=== PATIENT | male | born 1980 | race Two or more races ===

== ENCOUNTER 2021-05-14 15:44 | Inpatient (IN) ==
[2021-05-14 16:34] LABS: Alanine Aminotransferase 46 U/L (7-52); Albumin Globulin Ratio 0.7 (0.9-2); Albumin Level 3.4 gm/dl (3.4-5.0); Alkaline Phosphatase 148 U/L (34-104); Anion Gap 3 (3-11); Aspartate Aminotransferase 64 U/L (13-39); Bilirubin,Total 1.5 mg/dl (0.2-1.0); Blood Urea Nitrogen 20 mg/dl (6-23); Calcium 8.8 mg/dl (8.5-10.1); Carbon Dioxide 25 mmol/L (21-32); Chloride 105 mmol/L (98-107); Est GFR (African American) 102.4 ml/min; Est GFR (Non-African American) 88.4 ml/min; Globulin 4.6 gm/dl (2.5-4.0); Glucose 104 mg/dl (70-99(Fasting)); Lipase 74 U/L (11-82); Potassium 4.6 mmol/L (3.5-5.1); Sodium 133 mmol/L (136-145)
[2021-05-14 16:52] LABS: Basophils # (auto) 0.02 K/uL (0-0.2); Basophils % (auto) 0.3 %; Eosinophils # (auto) 0.07 K/uL (0-0.5); Eosinophils % (auto) 1.1 %; Hematocrit (blood only) 45.7 % (42-52); Hemoglobin 16.3 g/dL (14.0-18.0); Immature Granulocytes # (auto) 0.02 K/uL (0.00-0.02); Immature Granulocytes % (auto) 0.3 %; Lymphocytes # (auto) 1.49 K/uL (1.2-3.4); Mean Corpuscular Hgb Conc 35.7 g/dL (32-36); Mean Corpuscular Volume 95.4 fL (80-100); Mean Platelet Volume 12.2 fL (7.4-10.4); Monocytes # (auto) 0.97 K/uL (0.11-0.59); Monocytes % (auto) 15.6 %; Neutrophils # (auto) 3.65 K/uL (1.4-6.5); Neutrophils % (auto) 58.7 %; Platelet Count 84 K/uL (130-400); Platelet Estimate Decreased (Normal); RDW Coefficient of Variation 13.6 % (11.5-14.5); RDW Standard Deviation 47.2 fL (36.4-46.3); Red Blood Count 4.79 M/uL (4.7-6.1); White Blood Count 6.22 K/uL (4.8-10.8)
[2021-05-14] MEDS ORDERED: MoRPHine SULFATE 4 MG/ML 1 ML CARP\\VIAL IV PRN (17:37)
[2021-05-14] MEDS ORDERED: MoRPHine SULFATE 4 MG/ML 1 ML CARP\\VIAL IV STA (17:37)
[2021-05-14] MEDS ORDERED: SODIUM CHLORIDE 0.9% 1000ML 1,000 ML IV ONE (17:37)
[2021-05-14] MEDS: ONDANSETRON INJ 2 MG/ML 2 ML VIAL IV STA (17:49)
[2021-05-14 17:51] LABS: INR 1.2 (0.9-1.1); Partial Thromboplastin Ratio 1.1; Partial Thromboplastin Time 29.5 Seconds (21.0-31.0); Prothrombin Time 11.7 Seconds (9.0-12.0)
--- NOTE | 2021-05-14 18:02 | Emergency Department Note ---
Impression & Plan Abdominal pain, Hepatitis C, Back pain, Thrombocytopenia ED Provider Note NAME: MARCY [id number] LISA AGE: 41 SEX: M : 1980 ARRIVES VIA: Walk-In INFORMANT: Patient, ED PROVIDER(S): Caesar Samano DO CHIEF COMPLAINT: Abdominal pain HPI: The patient is a 41-year-old male who presented to emergency department for an evaluation of abdominal pain. The patient describes right-sided abdominal pain. It does go to his flank sometimes. He denies having any chest pain or difficulty breathing. He was not noted to have any fever. The patient was seen at the [facility] at the [facility] and sent to the emergency department for further evaluation. He states he has never had similar symptoms in the past. He states his pain is moderate to severe. He does have pain that worsens with ambulation as well as palpation over the right side of the abdomen. He has had some nausea but no vomiting. ROS: See above HPI for pertinent positives & negatives. A total of 10 systems reviewed and were otherwise negative. PAST MEDICAL HISTORY: See Below PAST SURGICAL HISTORY: See Below FAMILY HISTORY: See Below SOCIAL HISTORY: See Below HOME MEDICATIONS: See Below ALLERGIES: See Below VITALS: See Below PHYSICAL EXAMINATION: GENERAL: The patient is awake and alert. He appears uncomfortable and anxious. EYES: The conjunctivae are clear. The pupils are round and reactive. EARS, NOSE, MOUTH AND THROAT: The nose is without any evidence of any deformity. NECK: The neck is nontender and supple. RESPIRATORY: Normal respiratory effort is noted there is no evidence of wheezing rhonchi or rales CARDIOVASCULAR: Regular rate and rhythm noted there no murmurs rubs or gallops normal S1 normal S2. GASTROINTESTINAL: The abdomen is soft and mildly distended. There is significant right upper and right lower quadrant tenderness to palpation. Mild guarding is noted. BACK: No midline tenderness or or step-off noted range of motion in flexion extension as well as rotation no signs of muscle spasm noted MUSCULOSKELETAL/EXTREMITIES: There is no evidence of gross deformity full range of motion is noted in the hips and shoulders. SKIN: There is no obvious evidence of any rash. There are no petechiae, pallor or cyanosis noted. NEUROLOGIC: Patient is awake alert and oriented x3. MEDICAL DECISION MAKING: The patient is a 41-year-old male who has a history of HIV as well as hepatitis C who presented to the emergency department for an evaluation of abdominal pain. History was obtained with the use of the [facility]. The patient is Egyptian- speaking. I discussed the patient's laboratory and radiographic studies with him. He does have a history of hepatitis and he states that he has had several episodes in the past when his "liver was inflamed". The patient was treated with IV fluids and IV pain medication. CAT scan was obtained. It appears to sh ow signs of abnormality in the lower back. This could be consistent with osteomyelitis or discitis. Because of these findings I discussed his case with the on-call [facility] hospitalist. They have agreed to evaluate the patient in the emergency department for further management and disposition. The patient may require further imaging. Triage Nursing notes reviewed. Prior medical records reviewed Vital Signs: reviewed and remarkable for no significant abnormalities Differential diagnosis: Etiologies such as appendicitis, diverticulitis, obstruction, inflammatory bowel disease, renal colic, PUD, biliary pathology, pancreatitis, mesenteric ischemia, aortic pathology, infections, genitourinary, UTI, perforated viscus, as well as others were entertained. ER treatment provided: See below Diagnostics interpreted by me: ECG: none Cardiac Monitoring: An order was placed for continuous cardiac monitoring. The monitor shows a rate of 70 bpm with sinus rhythm. Laboratory studies: As stated above and show below. Imaging studies: See below Consultation(s): I discussed this case with Br[facility]. Past Med/Surg History Medical History (Updated 05/14/21 @ 22:25 by Caesar Samano DO) Hepatitis C HIV (human immunodeficiency virus infection) Social History Smoking Status: Former smoker Preferred Language: Egyptian Feels Safe at Home: Yes Allergies Allergies Allergy/AdvReac Type Severity Reaction Status Date / Time No Known Allergies Allergy Unverified 05/14/21 19:10 Home Meds Home Medications Medication Instructions Recorded Confirmed bictegravir 30 mg-emtricitabine 1 tab PO DAILY 05/14/21 05/14/21 120 mg-tenofovir alafenam 15 mg tablet (Biktarvy) duloxetine 30 mg capsule,delayed 30 mg PO BID 05/14/21 05/14/21 release (Cymbalta) levalbuterol tartrate 45 2 inh INHALATION Q6H PRN 05/14/21 05/14/21 mcg/actuation aerosol inhaler (Xopenex HFA) pantoprazole 40 mg tablet,delayed 40 mg PO HS 05/14/21 05/14/21 release (Protonix) propranolol 40 mg tablet 40 mg PO BID 05/14/21 05/14/21 trazodone 100 mg tablet 100 mg PO HS 05/14/21 05/14/21 Results & Data (ED) Vital Signs Vital Signs - 24 hr 05/14/21 15:46 05/14/21 17:48 05/14/21 17:59 Temperature 36.3 C L Temperature Source Temporal Artery Scan Pulse Rate 80 73 Pulse Rate [Apical] 74 Pulse Rate from SpO2 Sensor 73 Pulse Rhythm Regular Pulse Strength Normal Respiratory Rate 20 20 24 Respiratory Effort / Characteristics Non-Labored Spontaneous Non-Labored Spontaneous Respiratory Depth Normal Normal Respiratory Pattern Regular Regular Blood Pressure 146/93 H Blood Pressure [Right Arm] 124/87 Blood Pressure Mean 110 Blood Pressure Mean [Right Arm] 99 Blood Pressure Position Sitting Blood Pressure Position [Right Arm] Pulse Oximetry 95 95 93 Oxygen Delivery Method Room Air Room Air Sepsis Recent Fever Within 48 Hours No Sepsis New/Unexplained Change in Mental Status No Sepsis Action Taken by Nursing No Action Required 05/14/21 18:00 05/14/21 19:00 Temperature Temperature Source Pulse Rate 72 Pulse Rate [Apical] 70 Pulse Rate from SpO2 Sensor 72 Pulse Rhythm Pulse Strength Respiratory Rate 21 18 Respiratory Effort / Characteristics Respiratory Depth Respiratory Pattern Blood Pressure 137/87 Blood Pressure [Right Arm] 149/71 H Blood Pressure Mean 103 Blood Pressure Mean [Right Arm] 97 Blood Pressure Position Blood Pressure Position [Right Arm] Lying Pulse Oximetry 93 95 Oxygen Delivery Method Room Air Sepsis Recent Fever Within 48 Hours Sepsis New/Unexplained Change in Mental Status Sepsis Action Taken by Prison Medications Current Medication List: was personally reviewed by me Laboratory Data Attestation: I reviewed the patient's lab results. Result diagrams: 05/14/21 16:06 05/14/21 16:06 Lab Results 05/14/21 05/14/21 05/14/21 Range/Units 16:06 16:06 16:06 WBC 6.22 (4.8-10.8) K/uL RBC 4.79 (4.7-6.1) M/uL Hgb 16.3 (14.0-18.0) g/dL Hct 45.7 (42-52) % MCV 95.4 (80-100) fL MCH 34.0 (25-34) pg MCHC 35.7 (32-36) g/dL RDW Std Deviation 47.2 H (36.4-46.3) fL RDW Coeff of Evan 13.6 (11.5-14.5) % Plt Count 84 L (130-400) K/uL MPV 12.2 H (7.4-10.4) fL Immature Gran % (Auto) 0.3 % Neut % (Auto) 58.7 % Lymph % (Auto) 24.0 % Christian % (Auto) 15.6 % Eos % (Auto) 1.1 % Baso % (Auto) 0.3 % Neut # (Auto) 3.65 (1.4-6.5) K/uL Lymph # (Auto) 1.49 (1.2-3.4) K/uL Christian # (Auto) 0.97 H (0.11-0.59) K/uL Eos # (Auto) 0.07 (0-0.5) K/uL Baso # (Auto) 0.02 (0-0.2) K/uL Immature Gran # (Auto) 0.02 (0.00-0.02) K/uL Platelet Estimate Decreased L (Normal) ESR (0-15) mm/hr PT 11.7 (9.0-12.0) Seconds INR 1.2 H (0.9-1.1) APTT 29.5 (21.0-31.0) Seconds PTT Ratio 1.1 Sodium 133 L (136-145) mmol/L Potassium 4.6 (3.5-5.1) mmol/L Chloride 105 (98-107) mmol/L Carbon Dioxide 25 (21-32) mmol/L Anion Gap 3 (3-11) BUN 20 (6-23) mg/dl Creatinine 1.05 (0.6-1.4) mg/dl Est Cr Clr Drug Dosing Not Reportable Est GFR ( Amer) 102.4 ml/min Est GFR (Non-Af Amer) 88.4 ml/min BUN/Creatinine Ratio 19.0 (10-20) Glucose 104 H (70-99(Fasting)) mg/dl Calcium 8.8 (8.5-10.1) mg/dl Total Bilirubin 1.5 H (0.2-1.0) mg/dl AST 64 H (13-39) U/L ALT 46 (7-52) U/L Alkaline Phosphatase 148 H (34-104) U/L C-Reactive Protein (0-0.5) mg/dl Total Protein 8.0 (6.0-8.3) gm/dl Albumin 3.4 (3.4-5.0) gm/dl Globulin 4.6 H (2.5-4.0) gm/dl Albumin/Globulin Ratio 0.7 L (0.9-2) Lipase 74 (11-82) U/L Procalcitonin (0-0.5) ng/ml Hep Bs Antigen (Neg) Hepatitis C Antibody (Neg) SARS-CoV-2, RNA, NAAT (NEGATIVE) 05/14/21 05/14/21 05/14/21 Range/Units 16:06 16:06 16:06 WBC (4.8-10.8) K/uL RBC (4.7-6.1) M/uL Hgb (14.0-18.0) g/dL Hct (42-52) % MCV (80-100) fL MCH (25-34) pg MCHC (32-36) g/dL RDW Std Deviation (36.4-46.3) fL RDW Coeff of Evan (11.5-14.5) % Plt Count (130-400) K/uL MPV (7.4-10.4) fL Immature Gran % (Auto) % Neut % (Auto) % Lymph % (Auto) % Christian % (Auto) % Eos % (Auto) % Baso % (Auto) % Neut # (Auto) (1.4-6.5) K/uL Lymph # (Auto) (1.2-3.4) K/uL Christian # (Auto) (0.11-0.59) K/uL Eos # (Auto) (0-0.5) K/uL Baso # (Auto) (0-0.2) K/uL Immature Gran # (Auto) (0.00-0.02) K/uL Platelet Estimate (Normal) ESR 58 H (0-15) mm/hr PT (9.0-12.0) Seconds INR (0.9-1.1) APTT (21.0-31.0) Seconds PTT Ratio Sodium (136-145) mmol/L Potassium (3.5-5.1) mmol/L Chloride (98-107) mmol/L Carbon Dioxide (21-32) mmol/L Anion Gap (3-11) BUN (6-23) mg/dl Creatinine (0.6-1.4) mg/dl Est Cr Clr Drug Dosing Est GFR ( Amer) ml/min Est GFR (Non-Af Amer) ml/min BUN/Creatinine Ratio (10-20) Glucose (70-99(Fasting)) mg/dl Calcium (8.5-10.1) mg/dl Total Bilirubin (0.2-1.0) mg/dl AST (13-39) U/L ALT (7-52) U/L Alkaline Phosphatase (34-104) U/L C-Reactive Protein 6.92 H (0-0.5) mg/dl Total Protein (6.0-8.3) gm/dl Albumin (3.4-5.0) gm/dl Globulin (2.5-4.0) gm/dl Albumin/Globulin Ratio (0.9-2) Lipase (11-82) U/L Procalcitonin (0-0.5) ng/ml Hep Bs Antigen Neg (Neg) Hepatitis C Antibody Prelim Pos A (Neg) SARS-CoV-2, RNA, NAAT (NEGATIVE) 05/14/21 05/14/21 Range/Units 16:06 17:44 WBC (4.8-10.8) K/uL RBC (4.7-6.1) M/uL Hgb (14.0-18.0) g/dL Hct (42-52) % MCV (80-100) fL MCH (25-34) pg MCHC (32-36) g/dL RDW Std Deviation (36.4-46.3) fL RDW Coeff of Evan (11.5-14.5) % Plt Count (130-400) K/uL MPV (7.4-10.4) fL Immature Gran % (Auto) % Neut % (Auto) % Lymph % (Auto) % Christian % (Auto) % Eos % (Auto) % Baso % (Auto) % Neut # (Auto) (1.4-6.5) K/uL Lymph # (Auto) (1.2-3.4) K/uL Christian # (Auto) (0.11-0.59) K/uL Eos # (Auto) (0-0.5) K/uL Baso # (Auto) (0-0.2) K/uL Immature Gran # (Auto) (0.00-0.02) K/uL Platelet Estimate (Normal) ESR (0-15) mm/hr PT (9.0-12.0) Seconds INR (0.9-1.1) APTT (21.0-31.0) Seconds PTT Ratio Sodium (136-145) mmol/L Potassium (3.5-5.1) mmol/L Chloride (98-107) mmol/L Carbon Dioxide (21-32) mmol/L Anion Gap (3-11) BUN (6-23) mg/dl Creatinine (0.6-1.4) mg/dl Est Cr Clr Drug Dosing Est GFR ( Amer) ml/min Est GFR (Non-Af Amer) ml/min BUN/Creatinine Ratio (10-20) Glucose (70-99(Fasting)) mg/dl Calcium (8.5-10.1) mg/dl Total Bilirubin (0.2-1.0) mg/dl AST (13-39) U/L ALT (7-52) U/L Alkaline Phosphatase (34-104) U/L C-Reactive Protein (0-0.5) mg/dl Total Protein (6.0-8.3) gm/dl Albumin (3.4-5.0) gm/dl Globulin (2.5-4.0) gm/dl Albumin/Globulin Ratio (0.9-2) Lipase (11-82) U/L Procalcitonin 0.08 (0-0.5) ng/ml Hep Bs Antigen (Neg) Hepatitis C Antibody (Neg) SARS-CoV-2, RNA, NAAT NEGATIVE (NEGATIVE) Administered Medications Discontinued Medications Sodium Chloride (Nss 1000ml) 1,000 mls @ 999 mls/hr IV .Q1H1M ONE Stop: 05/14/21 18:37 Last Admin: 05/14/21 17:49 Dose: 999 mls/hr Documented by: [id number] Ioversol (Optiray 320 100ml) 92 ml IV ONCE ONE Stop: 05/14/21 18:34 Last Admin: 05/14/21 18:34 Dose: 92 ml Documented by: [id number] Morphine Sulfate (Morphine Sulfate 4 Mg/Ml 1 Ml Carp\\Vial) 4 mg IV NOW STA Stop: 05/14/21 17:38 Last Admin: 05/14/21 17:49 Dose: 4 mg Documented by: [id number] Ondansetron HCl (Ondansetron Inj 2 Mg/Ml 2 Ml Vial) 4 mg IV NOW STA Stop: 05/14/21 17:38 Last Admin: 05/14/21 17:49 Dose: 4 mg Documented by: [id number] Admin: 05/14/21 17:49 Dose: 4 mg Documented by: [id number] Imaging Data Radiologist's Impression: Chest X-Ray 05/14/21 17:31 XR chest 1V portable HISTORY: Shortness of breath, liver dx COMPARISON: None. FINDINGS: There are low lung volumes. No pneumothorax. No pleural effusions. The heart is mildly enlarged. There is diffuse interstitial/vascular thickening consistent with mild congestive change. IMPRESSION: Cardiomegaly with mild congestive change. ACT 112: Negative or not required by law. Electronically signed by: Alek Nguyen M.D. 05/14/2021 6:35 PM Abdomen/Pelvis CT 05/14/21 17:[address] WITH IV CONTRAST CT DOSE: 788.62 mGy.cm HISTORY: Right-sided abdominal pain. TECHNIQUE: Multiaxial CT images of the abdomen and pelvis were performed follow ing the use of intravenous contrast. A dose lowering technique was utilized adhering to the principles of ALARA. COMPARISON STUDY: None. FINDINGS: Respiratory motion at the lung bases resulting in suboptimal evaluation. Small focal density within the lingula which measures 8 mm. This may represent atelectasis. Otherwise, the lung bases are clear. The heart is borderline enlarged. No pneumoperitoneum. No pneumatosis. Destructive change at the L4-5 endplates with paravertebral infiltration consistent with a discitis/osteomyelitis. The endplates demonstrate sclerotic edges, therefore, this may represent an acute on chronic discitis/osteomyelitis. There is also moderate to severe central canal narrowing at this level likely due to the disc osteophyte complex. Nodular contour throughout the liver consistent with cirrhosis. Wedge-shaped hypodensity within the left hepatic lobe. Associated capsular retraction favors fibrosis/scarring. No definite hepatic masses. The spleen is enlarged measuring 14 cm in length. There is distal paraesophageal and upper abdominal varicosities consistent with portal hypertension. The main portal vein appears patent. Umbilical varicosities are also noted. No retroperitoneal lymphadenopathy. Normal caliber abdominal aorta. There is a punctate stone within the left kidney. The kidneys enhance normally. No ureteral stones. No hydronephrosis. Normal bladder. The gallbladder is unremarkable. Normal pancreas and adrenal glands. Mild perihepatic inflammatory change is noted. No ascites. A few colonic diverticula. No evidence for acute diverticulitis. No bowel wall thickening or obstruction. Normal appendix. IMPRESSION: 1. Cirrhotic liver with mild perihepatic inflammatory change. This may represent acute hepatitis. 2. Distal paraesophageal, upper abdominal, and umbilical varices with associated splenomegaly. This consistent with underlying portal hypertension. 3. No bowel wall thickening or obstruction. 4. Normal appendix. 5. Left-sided nephrolithiasis. No hydronephrosis. 6. Destructive change at the L4-5 endplates with paravertebral infiltration consistent with a discitis/osteomyelitis. The endplates demonstrate sclerotic edges, therefore, this may represent an acute on chronic discitis/osteomyelitis. 7. Additional findings as described above. ACT 112: Negative or not required by law. Electronically signed by: Alek Nguyen M.D. 05/14/2021 6:54 PM Discharge Plan Visit Data Chief Complaint: Abdominal Pain Stated Complaint: ABD PAIN ED Provider: Caesar Samano Discharge Problem: Abdominal pain, Hepatitis C, Back pain, Thrombocytopenia Patient Disposition: Being Evaluated by Hospitalist Forms Stand Alone Forms: [facility] Prescriptions Prescriptions: No Action propranolol 40 mg Tablet 40 mg PO BID RF: 0 trazodone 100 mg Tablet 100 mg PO HS RF: 0 pantoprazole [Protonix] 40 mg Tablet,Delayed Release (Dr/Ec) 40 mg PO HS RF: 0 duloxetine [Cymbalta] 30 mg Capsule,Delayed Release(Dr/Ec) 30 mg PO BID RF: 0 levalbuterol tartrate [Xopenex HFA] 45 mcg/actuation Hfa Aerosol Inhaler 2 inh INHALATION Q6H PRN (Reason: Shortness Of Breath Or Wheezing) RF: 0 Biktarvy 30-120-15 mg Tablet 1 tab PO DAILY RF: 0 Referrals Referrals: Dago FRAZIER [Primary Care Provider] -
[2021-05-14] MEDS ORDERED: OPTIRAY 320 100ml IV ONE (18:33)
--- NOTE | 2021-05-14 18:37 | XRay Report ---
XR chest 1V portable HISTORY: Shortness of breath, liver dx COMPARISON: None. FINDINGS: There are low lung volumes. No pneumothorax. No pleural effusions. The heart is mildly enla rged. There is diffuse interstitial/vascular thickening consistent with mild congestive change. IMPRESSION: Cardiomegaly with mild congestive change. ACT 112: Negative or not required by law. Electronically signed by: Alek Nguyen M.D. 05/14/2021 6:35 PM
--- NOTE | 2021-05-14 18:56 | CT Scan Report ---
ABDOMEN AND PELVIS CT WITH IV CONTRAST CT DOSE: 788.62 mGy.cm HISTORY: Right-sided abdominal pain. TECHNIQUE: Multiaxial CT images of the abdomen and pelvis were performed following the use of intrave nous contrast. A dose lowering technique was utilized adhering to the principles of ALARA. COMPARISON STUDY: None. FINDINGS: Respiratory motion at the lung bases resulting in suboptimal evaluation. Small focal densit y within the lingula which measures 8 mm. This may represent atelectasis. Otherwise, the lung bases a re clear. The heart is borderline enlarged. No pneumoperitoneum. No pneumatosis. Destructive change a t the L4-5 endplates with paravertebral infiltration consistent with a discitis/osteomyelitis. The en dplates demonstrate sclerotic edges, therefore, this may represent an acute on chronic discitis/osteo myelitis. There is also moderate to severe central canal narrowing at this level likely due to the di sc osteophyte complex. Nodular contour throughout the liver consistent with cirrhosis. Wedge-shaped h ypodensity within the left hepatic lobe. Associated capsular retraction favors fibrosis/scarring. No definite hepatic masses. The spleen is enlarged measuring 14 cm in length. There is distal paraesopha geal and upper abdominal varicosities consistent with portal hypertension. The main portal vein appea rs patent. Umbilical varicosities are also noted. No retroperitoneal lymphadenopathy. Normal caliber abdominal aorta. There is a punctate stone within the left kidney. The kidneys enhance normally. No u reteral stones. No hydronephrosis. Normal bladder. The gallbladder is unremarkable. Normal pancreas a nd adrenal glands. Mild perihepatic inflammatory change is noted. No ascites. A few colonic diverticu la. No evidence for acute diverticulitis. No bowel wall thickening or obstruction. Normal appendix. IMPRESSION: 1. Cirrhotic liver with mild perihepatic inflammatory change. This may represent acute hepatitis. 2. Distal paraesophageal, upper abdominal, and umbilical varices with associated splenomegaly. This c onsistent with underlying portal hypertension. 3. No bowel wall thickening or obstruction. 4. Normal appendix. 5. Left-sided nephrolithiasis. No hydronephrosis. 6. Destructive change at the L4-5 endplates with paravertebral infiltration consistent with a disciti s/osteomyelitis. The endplates demonstrate sclerotic edges, therefore, this may represent an acute on chronic discitis/osteomyelitis. 7. Additional findings as described above. ACT 112: Negative or not required by law. Electronically signed by: Alek Nguyen M.D. 05/14/2021 6:54 PM
[2021-05-14 20:11] LABS: Hepatitis B Surf Ag Rflx Conf Neg (Neg)
--- NOTE | 2021-05-14 21:13 | History & Physical Report ---
Date of Service May 14, 2021 Assessment & Plan (1) Abdominal pain: (2) Cirrhosis: (3) Esophageal varices: (4) Thrombocytopenia: (5) Hepatitis C: Plan: Patient is 41 y/o M with PMH HIV, Hepatitis C, h/o syphilis, cirrhosis, ascites, esophageal varices, h/o IV drug abuse, alcohol abuse, h/o endocarditis, h/o osteomyelitis lumbar spine in 2020 presents to ER from [facility] with c/o right sided abdominal pain x 3 days with radiation to back. C/O one loose stool daily. Outpatient record sent with pt from [facility]: 02/21/2021: Plt: 61K, T bili: 0.7, AST: 65, ALT: 38. Alk Phos: 118 Today afebrile, no leukocytosis, Plt: 84, INR: 1.2, T Bili: 1.5, AST: 64, ALT: 46, Alk Phos: 148 CT Abd/pelvis: 1. Cirrhotic liver with mild perihepatic inflammatory change. This may represent acute hepatitis. 2. Distal paraesophageal, upper abdominal, and umbilical varices with associated splenomegaly. This consistent with underlying portal hypertension. 3. No bowel wall thickening or obstruction. 4. Normal appendix. 5. Left-sided nephrolithiasis. No hydronephrosis. In ER given 1L NSS, Zofran, morphine 4mg No acute signs of GI bleed, no significant ascites noted on CT abd/pelvis Acute hepatitis panel pending HCV RNA pending GI consult Continue PPI (6) HIV (human immunodeficiency virus infection): Plan: Outpatient record reports CD4:120 on 02/21/2111/2020: HIV VL<20, HCV VL: [id number] CD4, HIV RNA pending ID consult Continue Biktarvy (7) Osteomyelitis: Plan: Outpatient note reports h/o L4-L5 discitis, cultures +C. Albicans, also with MV endocarditis. Completed therapy with fluconazole and levofloxacin 10/02/20 Pt reports back pain x 1 month. Reports tactile fevers x 3 days. ABD/PELVIS CT: Destructive change at the L4-5 endplates with paravertebral infiltration consistent with a discitis/osteomyelitis. The endplates demonstrate sclerotic edges, therefore, this may represent an acute on chronic discitis/osteomyelitis. Obtain MRI L-spine to r/o discitis/osteomyelitis Obtain blood cultures, lactate Zosyn, daptomycin ESR, CRP elevated ID consult Repeat CRP, ESR, CBC in am Consider ortho spine consult. Currently unavailable (8) Endocarditis: Plan: History IV drug abuse. Last reported use in 2020. Outpatient note reports h/o L4-L5 discitis, cultures +C. Albicans, also with MV endocarditis. Completed therapy with fluconazole and levofloxacin 10/02/20 Since pt reports exertional SOB x several weeks and tactile fevers x 3 days, Will obtain echo to r/o endocarditis Obtain blood cultures Started on Zosyn, daptomycin ID consult (9) Asthma: Plan: No signs of exacerbation Continue Xopenex as needed (10) HTN (hypertension): Plan: Continue propranolol DVT Prophylaxis SCDs Currently incarcerated at [facility] Pt was seen and care coordinated with Dr Roberts. See addendum History of Present Illness Chief Complaint: Abdominal pain Primary Care Provider: [facility] Patient is 41 y/o M with PMH HTN, HIV, Hepatitis C, h/o syphilis, cirrhosis, ascites, esophageal varices, h/o IV drug abuse, alcohol abuse, h/o endocarditis, h/o osteomyelitis lumbar spine in 2020 presents to ER from [facility] with c/o right sided abdominal pain x 3 days. 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 Reports moderate pain, pain increased with inspiration, and radiates to right back. Reports history swelling of abdomen and states abdomen continues to be swollen. Feels chills and tactile fevers at night for past 3 days. Past 2 weeks loose stools having one episode daily. Denies nausea, vomiting. Reports back pain since last year. Reports history osteomyelitis and endocarditis in 2020 and was treated with antibiotics and back pain seemed to improve after treatment. He reports was using a back brace which he felt helped however since being incarcerated the past month has been unable to use back brace. Reports Back pain stated occurring again the past month and is to low back. C/O SOB with exertion for past several weeks. Denies cough or chest pain. Had rash to abdomen that was pruritic. reports was given a cream that improved rash. reports h/o EGD and thinks had GI bleeding of stomach in past. Denies h/o paracentesis. Patient thinks was treated for Hepatitis C. Reports thinks had Hepatitis A and B vaccination. Reports last used IV heroin 04/2020. Last ETOH 2020. Denies N/V, melena, hematochezia, dizziness, orthopnea, paresthesias, extremity weakness, extremity edema. Outpatient record sent with pt from [facility]: 02/21/2021: Plt: 61K, T bili: 0.7, AST: 65, ALT: 38. Alk Phos: 118, CD4:120 11/2020: HIV VL<20, HCV VL: [id number] 12/17/20 US: inhomogenous echotexture with lobulated contour concerning for cirrhosis, dilated CBD, splenomegaly, no ascites. Allergies Allergy/AdvReac Type Severity Reaction Status Date / Time No Known Allergies Allergy Unverified 05/14/21 19:10 Home Medications Medication Instructions Recorded Confirmed Type bictegravir 30 mg-emtricitabine 1 tab PO DAILY 05/14/21 05/14/21 History 120 mg-tenofovir alafenam 15 mg tablet (Biktarvy) duloxetine 30 mg capsule,delayed 30 mg PO BID 05/14/21 05/14/21 History release (Cymbalta) levalbuterol tartrate 45 2 inh INHALATION Q6H PRN 05/14/21 05/14/21 History mcg/actuation aerosol inhaler (Xopenex HFA) pantoprazole 40 mg tablet,delayed 40 mg PO HS 05/14/21 05/14/21 History release (Protonix) propranolol 40 mg tablet 40 mg PO BID 05/14/21 05/14/21 History trazodone 100 mg tablet 100 mg PO HS 05/14/21 05/14/21 History Past Med/Surg History Medical History (Updated 05/14/21 @ 22:53 by Latoya Pozo PA-C) Asthma Cirrhosis Endocarditis Esophageal varices Hepatitis C HIV (human immunodeficiency virus infection) HTN (hypertension) Osteomyelitis Thrombocytopenia Surgical History (Updated 05/14/21 @ 22:36 by Latoya Pozo PA-C) History of esophagogastroduodenoscopy (EGD) Family History (Updated 05/14/21 @ 22:48 by Latoya Pozo PA-C) Other Diabetes Social History (Updated 05/14/21 @ 22:49 by Latoya Pozo PA-C) Smoking Status: Unknown if ever smoked Tobacco Type: Cigarettes Do You Dip or Chew Tobacco: No; Hx Alcohol Use: No Hx Substance Use: Yes Preferred Language: Czech Communication Ability: Effective Communication Tools: IPad Epoxy Specialist Required: Yes Beliefs That Will Affect Care: None Current Living Situation: Other Current Living Situation Comment: [facility] Other Information That Helps Us Care for You: No Feels Safe at Home: Yes Safety Concerns: Feels Safe At This Time Review of Systems Review of Systems: All systems reviewed & are unremarkable except as noted in HPI & below Physical Exam Physical Exam: General: no distress, WDWN Head: normocephalic, atraumatic Eyes: conjunctiva non-injected, anicteric ENT: normal inspection external ears, nose, mucous membranes moist Neck: supple, trachea midline Lungs: clear, no respiratory distress, no wheezing/rhonchi/rales CV: RRR, no murmur, no pretibial edema Abd: +distended, normal BS, +tender to palpation RUQ, epigastric Ext: no cyanosis, no calf tenderness Neuro: A&O x 3, no focal deficits noted, normal affect Skin: warm, dry Results & Data Results [facility] Vital Signs (Past 12 Hours) Vital Signs Temp Pulse Pulse Resp BP BP Pulse Ox 05/14/21 19:00 70 18 149/71 H 95 05/14/21 18:00 72 21 137/87 93 05/14/21 17:59 73 24 93 05/14/21 17:48 74 20 124/87 95 05/14/21 15:46 36.3 C L 80 20 146/93 H 95 Laboratory Results Short CBC 05/14/21 Range/Units 16:06 WBC 6.22 (4.8-10.8) K/uL Hgb 16.3 (14.0-18.0) g/dL Hct 45.7 (42-52) % Plt Count 84 L (130-400) K/uL BMP 05/14/21 16:06 Sodium 133 L Potassium 4.6 Chloride 105 Carbon Dioxide 25 BUN 20 Creatinine 1.05 Glucose 104 H Calcium 8.8 Liver Function 05/14/21 Range/Units 16:06 Total Bilirubin 1.5 H (0.2-1.0) mg/dl AST 64 H (13-39) U/L ALT 46 (7-52) U/L Alkaline Phosphatase 148 H (34-104) U/L Albumin 3.4 (3.4-5.0) gm/dl Diagnostic Findings Chest X-Ray 05/14/21 17:31 XR chest 1V portable HISTORY: Shortness of breath, liver dx COMPARISON: None. FINDINGS: There are low lung volumes. No pneumothorax. No pleural effusions. The heart is mildly enlarged. There is diffuse interstitial/vascular thickening consistent with mild congestive change. IMPRESSION: Cardiomegaly with mild congestive change. ACT 112: Negative or not required by law. Electronically signed by: Alek Nguyen M.D. 05/14/2021 6:35 PM Abdomen/Pelvis CT 05/14/21 17:[address] WITH IV CONTRAST CT DOSE: 788.62 mGy.cm HISTORY: Right-sided abdominal pain. TECHNIQUE: Multiaxial CT images of the abdomen and pelvis were performed following the use of intravenous contrast. A dose lowering technique was utilized adhering to the principles of ALARA. COMPARISON STUDY: None. FINDINGS: Respiratory motion at the lung bases resulting in suboptimal evaluation. Small focal density within the lingula which measures 8 mm. This may represent atelectasis. Otherwise, the lung bases are clear. The heart is borderline enlarged. No pneumoperitoneum. No pneumatosis. Destructive change at the L4-5 endplates with paravertebral infiltration consistent with a discitis/osteomyelitis. The endplates demonstrate sclerotic edges, therefore, this may represent an acute on chronic discitis/osteomyelitis. There is also moderate to severe central canal narrowing at this level likely due to the disc osteophyte complex. Nodular contour throughout the liver consistent with cirrhosis. Wedge-shaped hypodensity within the left hepatic lobe. Associated capsular retraction favors fibrosis/scarring. No definite hepatic masses. The spleen is enlarged measuring 14 cm in length. There is distal paraesophageal and upper abdominal varicosities consistent with portal hypertension. The main portal vein appears patent. Umbilical varicosities are also noted. No retroperitoneal lymphadenopathy. Normal caliber abdominal aorta. There is a punctate stone within the left kidney. The kidneys enhance normally. No ureteral stones. No hydronephrosis. Normal bladder. The gallbladder is unremarkable. Normal pancreas and adrenal glands. Mild perihepatic inflammatory change is noted. No ascites. A few colonic diverticula. No evidence for acute diverticulitis. No bowel wall thickening or obstruction. Normal appendix. IMPRESSION: 1. Cirrhotic liver with mild perihepatic inflammatory change. This may represent acute hepatitis. 2. Distal paraesophageal, upper abdominal, and umbilical varices with associated splenomegaly. This consistent with underlying portal hypertension. 3. No bowel wall thickening or obstruction. 4. Normal appendix. 5. Left-sided nephrolithiasis. No hydronephrosis. 6. Destructive change at the L4-5 endplates with paravertebral infiltration consistent with a discitis/osteomyelitis. The endplates demonstrate sclerotic edges, therefore, this may represent an acute on chronic discitis/osteomyelitis. 7. Additional findings as described above. ACT 112: Negative or not required by law. Electronically signed by: Alek Nguyen M.D. 05/14/2021 6:54 PM Supervising Physician Co-Signing Physician Notes I have seen and examined the patient and have discussed the case with the provider above. I agree with the assessment and plan as stated. This history and physical was completed through a Czech speech and language assistant entirely. Paper records wer reviewed from the long-term. 41 yo M with reported h/o fungemia with Yenifer last year, h/o cirrhosis and known HCV and HIV on treatment but with low CD4 count last fall presents with worsening of abdominal swelling and RUQ/RLQ pain. He reports once daily loose stools without blood. He denies fevers or chills and is tolerating PO. He has a h/o heroin use as recent as Apr of this year. ROS also reveals lower back pain, worse recently. He has a h/o L4/5 discitis and was reportedly treated for this last year (complete treatment records are unavailable). Imaging today questions an acute on chronic discitis/osteomyelitis. L-spine MRI has been ordered overnight. There is no ascites on imaging this evening making SBP less likely. There is also no fluid wave on my exam. There is a note in his package regarding a telehealth visit with [facility] in [place] in fall 2020 stating that he had an undetectable HIV viral load with a CD4 count of 124.He is not on any antibiotic prophylaxis and reports compliance with [id number].Will need to request additional records surrounding previous treatment of HCV if any (patient states he was recently vaccinated against hepatitis?), MV endocarditis treatment, last two ID notes from whoever is managing his HIV, treatment of his fungemia and prior lumbar discitis.My exam reflects that above.He does not appear septic or unstable at this time but is in mild distress with enlarged tender abdomen. Differential includes but not limited to active hepatitis C infection, progression of HIV or other opportunistic infection, recurrence of L4/5 discitis/osteomyelitis, ?endocarditis (no murmur on exam or classic physical exam findings consistent with this, however, reports ongoing IVDU). Blood cultures drawn and broad abx started, GI consulted to help with etiology of abdominal pain. Although there is perihepatic inflammation and presence of HCV Ab, LFTs are <100. INR is close to normal. No ascites so doesn't appear to be decompensated cirrhosis. HCV RNA pending, HIV viral load and CD4 count are pending. ID consulted. MR L spine ordered. Echo ordered. Clear liquids and pain control as needed overnight. Will request records from prior facilities in am. Rhona Roberts DO [facility] Hospitalist (1) Hepatitis C Hepatic coma status: without hepatic coma Viral hepatitis chronicity: unspecified Qualified Code(s): B19.20 - Unspecified viral hepatitis C without hepatic coma
[2021-05-14] MEDS ORDERED: PIPERACILL/TAZOBAC CONSULT ACTIVE PRN (22:11)
[2021-05-14] MEDS ORDERED: CONSULT PHARMACY STA (22:18)
[2021-05-14] MEDS ORDERED: PIPERACILLIN/TAZOBACTAM 4.5 GM/120 ML BAG IV STA (22:21)
[2021-05-14] MEDS ORDERED: PATIENT'S HEIGHT AND/OR WEIGHT NEEDED STA (22:46)
[2021-05-14] MEDS ORDERED: ACETAMINOPHEN 325 MG TAB PO PRN (23:20)
[2021-05-14] MEDS ORDERED: ONDANSETRON INJ 2 MG/ML 2 ML VIAL IV PRN (23:20)
[2021-05-14] MEDS ORDERED: LEVALBUTEROL TARTRATE 15 GM HFA.AER.AD INH PRN (23:20)
[2021-05-15] MEDS ORDERED: DAPTOmycin 450 MG in SYRINGE 0 ML IV SCH
[2021-05-15] MEDS ORDERED: GADOBUTROL 65ML VIAL IV ONE (00:30)
[2021-05-15] MEDS: PANTOprazole 40 MG TAB PO SCH ×2 (00:54→21:20)
[2021-05-15] MEDS: PROPRANOLOL HCL 20 MG TAB PO SCH ×3 (00:54→21:42)
[2021-05-15] MEDS: DULoxetine HCL 30 MG CAP PO SCH ×3 (00:54→21:35)
[2021-05-15] MEDS: traZODone HCL 100 MG TAB PO SCH ×2 (00:54→21:35)
[2021-05-15] MEDS: PIPERACILLIN/TAZOBACTAM 4.5 GM in DEXTROSE 5% 100 ML IV SCH ×3 (05:41→22:54)
[2021-05-15 06:25] LABS: Hematocrit (blood only) 45.1 % (42-52); Hemoglobin 15.8 g/dL (14.0-18.0); Mean Corpuscular Hemoglobin 34.1 pg (25-34); Mean Corpuscular Volume 97.2 fL (80-100); Platelet Count 75 K/uL (130-400); RDW Coefficient of Variation 14.1 % (11.5-14.5); RDW Standard Deviation 49.6 fL (36.4-46.3); Red Blood Count 4.64 M/uL (4.7-6.1)
[2021-05-15 07:10] LABS: Albumin Globulin Ratio 0.8 (0.9-2); BUN Creatinine Ratio 15.7 (10-20); Calcium 8.5 mg/dl (8.5-10.1); Creatinine Clr Calc Pharmacy 118.2 ml/min; Est GFR (African American) 106.1 ml/min; Est GFR (Non-African American) 91.5 ml/min; Globulin 4.4 gm/dl (2.5-4.0); Total Protein 7.7 gm/dl (6.0-8.3)
[2021-05-15 08:03] LABS: Albumin Level 3.3 gm/dl (3.4-5.0); Bilirubin,Total 1.6 mg/dl (0.2-1.0); C Reactive Protein 6.72 mg/dl (0-0.5)
[2021-05-15 08:10] LABS: Appearance Urine Clear (Clear); Bilirubin Urine Negative (Negative); Blood Urine Negative (Negative); Color Urine Yellow; Glucose Urine UA Negative (Negative); Ketones Urine Negative (Negative); Leukocyte Esterase Urine Negative (Negative); Nitrite Urine Negative (Negative); Protein Urine Negative (Negative); Specific Gravity Urine 1.017 (1.000-1.030); Urobilinogen Urine Negative (Negative); pH Urine 6.5 (4.5-7.5)
[2021-05-15 08:28] LABS: Bilirubin Direct 0.4 mg/dl (0-0.2); Potassium 4.1 mmol/L (3.5-5.1)
[2021-05-15 08:55] LABS: Amphetamines+Metham, Urine Neg (Neg); Barbiturates, Urine Neg (Neg); Benzodiazepine, Urine Neg (Neg); Cocaine, Urine Neg (Neg); MDMA (Ecstacy), Urine Neg (Neg); Methadone, Urine Neg (Neg); Opiate, Urine Pos (Neg); Phencyclidine, Urine Neg (Neg)
--- NOTE | 2021-05-15 09:39 | Magnetic Resonance Report ---
MRI OF THE LUMBAR SPINE WITH AND WITHOUT CONTRAST CLINICAL HISTORY: Low back pain. Evaluate for discitis. COMPARISON STUDY: CT of the abdomen and pelvis May 14, 2021. TECHNIQUE: Utilizing a 1.5 Ivonne magnet and dedicated coil, multiplanar, multiecho imaging of the [facility] spine was performed before and after uneventful IV administration of 10 mL of Gadavist. FINDINGS: For purposes of numbering on this exam, the L5-S1 disc space is assigned to axial image 24 of 26. Not e is made of marked disc space narrowing of the L4-L5 intervertebral disc. There is associated bony d estruction of the inferior endplate of L4 and the superior endplate of L5. There is 20% loss of verte bral body height of L4 and 40% loss of vertebral height of L5. Note is made of mild paravertebral estelita ma and enhancement. There is extensive epidural enhancement at the L4 and L5 levels, predominantly an teriorly. This suggests phlegmon. No rim-enhancing epidural fluid collection is identified to suggest an abscess. There is also posterior epidural phlegmon. This phlegmon as well as retropulsion of the inferior endplate of L4 result in severe central canal stenosis. Patent AP diameter of the canal at t he L4-L5 level is 3 mm. Otherwise, the central canal is patent. Mild degenerative disc disease at L5- S1 is noted. No additional sites of central canal stenosis are present. Moderate bilateral neural for aminal stenosis at L4-L5. Otherwise, the neural foramen are patent. IMPRESSION: Marked disc space narrowing at L4-L5 with associated destructive changes of the inferior endplate of L4 and superior endplate of L5. The findings represent discitis/osteomyelitis. This proce ss may be subacute given the signal characteristics. Extensive associated epidural enhancement at the L4-L5 level represents phlegmon. No rim-enhancing fluid collection to suggest abscess. Extensive inf lammation and retropulsion of the inferior endplate of L4 result in severe central canal stenosis at this level. Spine surgical consultation is recommended. ACT 112: Negative or not required by law. Electronically signed by: Pablito Kelley M.D. 05/15/2021 9:38 AM
--- NOTE | 2021-05-15 10:45 | Gastrointestinal Consultation ---
Date of Consultation May 15, 2021 Assessment & Plan (1) Cirrhosis: (2) Hepatitis C: (3) Abdominal pain: Pt is a 41 yo male w hx of IVDU, ETOH abuse, untreated Hep C, seen for c/o R sided abd pain. LFTs mildly elevated, CT abd/pelvis w signs of cirrhosis, portal HTN, varices, There's perihepatic inflammatory changes suggestive of acute hepatitis infection. No ascites. No s/s of GI bleeding. MELD: 10. - F/U acute hepatitis panel - Obtain RUQ u/s to r/o gallbladder disease, stones/sludge - He'll need outpt Hepatology appointment for cirrhosis management (routine labs, EGD for variceal screening, HCC screening) - Defer discitis/osteomyelitis management per primary care team Supervising Physician Co-Signing Physician Notes I performed a history and physical examination of the patient today, including specifically on physical exam - soft abdomen. I have discussed the patient's management with the advanced practitioner. Please refer to the nurse practitioner's note for the documented findings and plan of care. Feels fine now and denies any abdominal pain. Recommend: F/U with Hepatology clinic as OP. Recall GI if needed. History of Present Illness Reason for Consultation: Abd pain Requesting Physician: Dr. Samir Carranza Attending Physician: Dr. Arely Gusman History of Present Illness Pt is a 41 yo male inmate who presented yesterday w co R sided abd pain. Pt rep orts this pain has been present since last week. He has associated night sweats and chills but no fevers or cough. Denies SOB, CP. Pain doesn't radiate and no n/v, changes in bowel habits otherwise. Pain can be aggravated by eating or moving around. Laying in bed helps. Noted pt has hx of IVDU, ETOH, untreated Hep C but recalls getting vaccinations for Hep A and B, also hx of syphillis. Most recent labs from outside records showed HCV viral load 50,4000. Abdominal imaging w CT and us showed signs of cirrhosis w perihepatic inflammatory changes consistent w acute hepatitis, portal hypertension w signs of splenomegaly, abd/paraesophageal varices. He denies any s/s of GI bleeding. Labs wo leukocytosis but CRP up. He had hx of discitis and osteomyelitis in lumbar spine area. LFTs: Tbili 1.6, AST 59, ALT 44, Alk phos 113 Allergies Allergy/AdvReac Type Severity Reaction Status Date / Time No Known Allergies Allergy Unverified 05/14/21 19:10 Home Medications Medication Instructions Recorded Confirmed Type bictegravir 30 mg-emtricitabine 1 tab PO DAILY 05/14/21 05/14/21 History 120 mg-tenofovir alafenam 15 mg tablet (Biktarvy) duloxetine 30 mg capsule,delayed 30 mg PO BID 05/14/21 05/14/21 History release (Cymbalta) levalbuterol tartrate 45 2 inh INHALATION Q6H PRN 05/14/21 05/14/21 History mcg/actuation aerosol inhaler (Xopenex HFA) pantoprazole 40 mg tablet,delayed 40 mg PO HS 05/14/21 05/14/21 History release (Protonix) propranolol 40 mg tablet 40 mg PO BID 05/14/21 05/14/21 History trazodone 100 mg tablet 100 mg PO HS 05/14/21 05/14/21 History Patient History Medical History Asthma Cirrhosis Endocarditis Esophageal varices Hepatitis C HIV (human immunodeficiency virus infection) HTN (hypertension) Osteomyelitis Thrombocytopenia Surgical History History of esophagogastroduodenoscopy (EGD) Family History Other Diabetes Social History Smoking Status: Unknown if ever smoked Tobacco Type: Cigarettes Do You Dip or Chew Tobacco: No; Hx Alcohol Use: No Hx Substance Use: Yes Preferred Language: Nauruan Communication Ability: Effective Communication Tools: IPad Offshore Diver Required: Yes Beliefs That Will Affect Care: None Current Living Situation: Other Current Living Situation Comment: [facility] Other Information That Helps Us Care for You: No Feels Safe at Home: Yes Safety Concerns: Feels Safe At This Time Review of Systems Review of Systems: All systems reviewed & are unremarkable except as noted in HPI & below Physical Exam Constitutional: WD/WN, vitals as above well groomed, cooperative and comfortable Eyes: PERRL, conjunctivae normal, anicteric sclerae ENMT: external ear and nose normal, oropharynx normal Respiratory: normal respiratory effort, lungs clear to auscultation Cardiovascular: RRR, no murmur, no edema Gastrointestinal (Abdomen): Enlarged liver noted, TTP along R sided of abdomen. BS hypoactive Skin: no rashes, warm and dry no jaundice Psychiatric: A+Ox3, euthymic affect Lymphatic: no lymphedema Results & Data ([facility]) Vital Signs (Past 12 Hours) Vital Signs Temp Pulse Resp BP Pulse Ox Pulse Ox 05/15/21 07:41 50 L 18 142/103 H 96 05/15/21 05:43 36.5 C 54 L 15 125/86 97 05/15/21 01:15 58 L 16 134/89 97 05/14/21 23:20 97 (1) Hepatitis C Hepatic coma status: without hepatic coma Viral hepatitis chronicity: unspecified Qualified Code(s): B19.20 - Unspecified viral hepatitis C without hepatic coma (2) Abdominal pain Abdominal location: right upper quadrant Qualified Code(s): R10.11 - Right upper quadrant pain
--- NOTE | 2021-05-15 11:38 | Hospitalist Progress Note ---
Date of Service May 15, 2021 Assessment & Plan (1) Abdominal pain: (2) Cirrhosis: (3) Esophageal varices: (4) Thrombocytopenia: (5) Hepatitis C: Plan: Patient is 41 y/o M with PMH HIV, Hepatitis C, h/o syphilis, cirrhosis, ascites, esophageal varices, h/o IV drug abuse, alcohol abuse, h/o endocarditis, h/o osteomyelitis lumbar spine in 2020 presents to ER from [facility] with c/o right sided abdominal pain x 3 days with radiation to back. C/O one loose stool daily. Outpatient record sent with pt from [facility]: 02/21/2021: Plt: 61K, T bili: 0.7, AST: 65, ALT: 38. Alk Phos: 118 Today afebrile, no leukocytosis, Plt: 84, INR: 1.2, T Bili: 1.5, AST: 64, ALT: 46, Alk Phos: 148 CT Abd/pelvis: 1. Cirrhotic liver with mild perihepatic inflammatory change. This may represent acute hepatitis. 2. Distal paraesophageal, upper abdominal, and umbilical varices with associated splenomegaly. This consistent with underlying portal hypertension. 3. No bowel wall thickening or obstruction. 4. Normal appendix. 5. Left-sided nephrolithiasis. No hydronephrosis. In ER given 1L NSS, Zofran, morphine 4mg No acute signs of GI bleed, no significant ascites noted on CT abd/pelvis Acute hepatitis panel pending HCV RNA pending GI consult Continue PPI (6) HIV (human immunodeficiency virus infection): Plan: Outpatient record reports CD4:120 on 02/21/2111/2020: HIV VL<20, HCV VL: [id number] CD4, HIV RNA pending ID consult ROS-No Headache, No Visual Changes, No Nausea, No Vomiting, No Fever, No Chills, No Neck Pain or Stiffness, No Chest Pain, No Palpitations, No SOB, No WILLETT, No Cough, No Sputum, No Wheezing, + R Sided Abd Pain, No Diarrhea, No Hematemesis, No Hemoptysis, No Unexpected Weight Loss, No Flank pain, No Melena, No Hematochezia, No Frequency, No Urgency, No Burning, No Hematuria, No Rashes, No Diaphoresis. Appetite is Normal Physical Exam Gen-AAO x 3, NAD, Afebrile, Urdu speaking only Head-NCAT, EOMI, PERRLA, Anicteric Sclera, No Posterior Pharyngeal Erythema Neck-Supple, No JVD, No Thyromegaly, No Masses, No LAD, No Bruits Lungs-Clear to Auscultation Bilaterally, No Rales, No Rhonchi, No Wheezing, No Crepitus Chest-No S4, +S1, +S2, No S3, No Murmurs, No Rubs, No Gallops, No Ectopy Abdomen-Soft, Bowel Sounds Present, Tender, Firm and Distended, No Hepatomegaly, No Splenomegaly, No Palpable Masses, No Rebound, No Rigidity, No Guarding Musculoskeletal-Full Range of Motion Bilaterally, No CVAT Extremities-No Cyanosis, No Clubbing, No Edema Nuero-Cranial Nerves II-XII grossly intact, Motor WNL, DTRs WNL, Strength WNL, Non Focal Psych-Normal Mood (7) Osteomyelitis: Plan: Outpatient note reports h/o L4-L5 discitis, cultures +C. Albicans, also with MV endocarditis. Completed therapy with fluconazole and levofloxacin 10/02/20 Pt reports back pain x 1 month. Reports tactile fevers x 3 days. ABD/PELVIS CT: Destructive change at the L4-5 endplates with paravertebral infiltration consistent with a discitis/osteomyelitis. The endplates demonstrate sclerotic edges, therefore, this may represent an acute on chronic discitis/osteomyelitis. Obtain MRI L-spine to r/o discitis/osteomyelitis Obtain blood cultures, lactate Zosyn, daptomycin ESR, CRP elevated ID consult Repeat CRP, ESR, CBC in am Consider ortho spine consult. Currently unavailable (8) Endocarditis: Plan: History IV drug abuse. Last reported use in 2020. Outpatient note reports h/o L4-L5 discitis, cultures +C. Albicans, also with MV endocarditis. Completed therapy with fluconazole and levofloxacin 10/02/20 Since pt reports exertional SOB x several weeks and tactile fevers x 3 days, Will obtain echo to r/o endocarditis Obtain blood cultures Started on Zosyn, daptomycin ID consult (9) Asthma: Plan: No signs of exacerbation Continue Xopenex as needed (10) HTN (hypertension): Plan: Continue propranolol DVT Prophylaxis SCDs Currently incarcerated at [facility] Pt was seen and care coordinated with Dr Roberts. See addendum Admission and Anticipated Discharge Date Admission Date: May 14, 2021 Results & Data Results & Data ([facility]) Vital Signs (Past 12 Hours) Vital Signs Temp Pulse Resp BP Pulse Ox 05/15/21 07:41 50 L 18 142/103 H 96 05/15/21 05:43 36.5 C 54 L 15 125/86 97 05/15/21 01:15 58 L 16 134/89 97 (1) Hepatitis C Hepatic coma status: without hepatic coma Viral hepatitis chronicity: unspecified Qualified Code(s): B19.20 - Unspecified viral hepatitis C without hepatic coma
--- NOTE | 2021-05-15 12:10 | Ultrasound Report ---
ABDOMINAL ULTRASOUND, RIGHT UPPER QUADRANT HISTORY: Right upper quadrant pain. eval gallbladder for stones, sludge; liver. COMPARISON: Abdomen and pelvis CT . FINDINGS: Pancreas: The pancreatic head and tail are obscured by overlying bowel gas. The remaining portions of the pancreas are within normal limits. The main pancreatic duct is slightly dilated measuring 4 mm. Liver: Nodular contour to the liver consistent with cirrhosis. No hepatic masses identified. There is recanalization of the umbilical vein consistent with portal hypertension. Gallbladder: No gallbladder wall thickening. No gallstones. CBD: 5 mm. Right kidney: No hydronephrosis. IMPRESSION: 1. Cirrhotic liver with evidence for portal hypertension. 2. Normal gallbladder. No gallstones. 3. Mild dilatation of the main pancreatic duct measuring 4 mm. ACT 112: Negative or not required by law. Electronically signed by: Alek Nguyen M.D. 05/15/2021 12:09 PM
[2021-05-15] MEDS ORDERED: PIPERACILLIN/TAZOBACTAM 4.5 GM/120ML D5W IV ONE (14:30)
[2021-05-15] MEDS ORDERED: DAPTOmycin 600 MG in SYRINGE 0 ML IV SCH (20:00)
[2021-05-16 05:11] LABS: INR 1.2 (0.9-1.1); Prothrombin Time 11.7 Seconds (9.0-12.0)
[2021-05-16 05:12] LABS: Hematocrit (blood only) 44.4 % (42-52); Hemoglobin 15.6 g/dL (14.0-18.0); Mean Corpuscular Hgb Conc 35.1 g/dL (32-36); Mean Corpuscular Volume 96.7 fL (80-100); Mean Platelet Volume 12.1 fL (7.4-10.4); Platelet Count 78 K/uL (130-400); RDW Coefficient of Variation 13.6 % (11.5-14.5); RDW Standard Deviation 48.3 fL (36.4-46.3); Red Blood Count 4.59 M/uL (4.7-6.1); White Blood Count 4.31 K/uL (4.8-10.8)
[2021-05-16 05:26] LABS: Albumin Globulin Ratio 0.7 (0.9-2); Albumin Level 3.1 gm/dl (3.4-5.0); BUN Creatinine Ratio 15.6 (10-20); Bilirubin,Total 1.1 mg/dl (0.2-1.0); Calcium 8.4 mg/dl (8.5-10.1); Creatinine Clr Calc Pharmacy 98.8 ml/min; Est GFR (African American) 85.4 ml/min; Est GFR (Non-African American) 73.7 ml/min; Globulin 4.3 gm/dl (2.5-4.0); Potassium 3.8 mmol/L (3.5-5.1); Total Protein 7.4 gm/dl (6.0-8.3)
[2021-05-16] MEDS: PIPERACILLIN/TAZOBACTAM 4.5 GM in DEXTROSE 5% 100 ML IV SCH ×2 (05:49→13:59)
[2021-05-16] MEDS: PROPRANOLOL HCL 20 MG TAB PO SCH ×2 (09:56→21:06)
[2021-05-16] MEDS: DULoxetine HCL 30 MG CAP PO SCH ×2 (09:56→21:05)
[2021-05-16] MEDS: BIKTARVY PO SCH (13:59)
--- NOTE | 2021-05-16 15:12 | Hospitalist Progress Note ---
Date of Service May 16, 2021 Assessment & Plan (1) Abdominal pain: (2) Cirrhosis: (3) Esophageal varices: (4) Thrombocytopenia: (5) Hepatitis C: Plan: Patient is 41 y/o M with PMH HIV, Hepatitis C, h/o syphilis, cirrhosis, ascites, esophageal varices, h/o IV drug abuse, alcohol abuse, h/o endocarditis, h/o osteomyelitis lumbar spine in 2020 presents to ER from [facility] with c/o right sided abdominal pain x 3 days with radiation to back. C/O one loose stool daily. Outpatient record sent with pt from [facility]: 02/21/2021: Plt: 61K, T bili: 0.7, AST: 65, ALT: 38. Alk Phos: 118 Today afebrile, no leukocytosis, Plt: 84, INR: 1.2, T Bili: 1.5, AST: 64, ALT: 46, Alk Phos: 148 CT Abd/pelvis: 1. Cirrhotic liver with mild perihepatic inflammatory change. This may represent acute hepatitis. 2. Distal paraesophageal, upper abdominal, and umbilical varices with associated splenomegaly. This consistent with underlying portal hypertension. 3. No bowel wall thickening or obstruction. 4. Normal appendix. 5. Left-sided nephrolithiasis. No hydronephrosis. In ER given 1L NSS, Zofran, morphine 4mg No acute signs of GI bleed, no significant ascites noted on CT abd/pelvis Acute hepatitis panel pending HCV RNA +, Hep panel still Pending GI on case, F/U in office for Cirrhosis Management Await Ortho Spine Continue PPI (6) HIV (human immunodeficiency virus infection): Plan: Outpatient record reports CD4:120 on 02/21/2111/2020: HIV VL<20, HCV VL: [id number] CD4, HIV RNA pending ID rec to DC Abx for now Old Records obtained from [place], will review ROS-No Headache, No Visual Changes, No Nausea, No Vomiting, No Fever, No Chills, No Neck Pain or Stiffness, No Chest Pain, No Palpitations, No SOB, No WILLETT, No Cough, No Sputum, No Wheezing, No Abd Pain, No Diarrhea, No Hematemesis, No Hemoptysis, No Unexpected Weight Loss, No Flank pain, No Melena, No Hematochezia, No Frequency, No Urgency, No Burning, No Hematuria, No Rashes, No Diaphoresis. Appetite is Normal, +Back Pain Physical Exam Gen-AAO x 3, NAD, Afebrile, Argentine speaking only Head-NCAT, EOMI, PERRLA, Anicteric Sclera, No Posterior Pharyngeal Erythema Neck-Supple, No JVD, No Thyromegaly, No Masses, No LAD, No Bruits Lungs-Clear to Auscultation Bilaterally, No Rales, No Rhonchi, No Wheezing, No Crepitus Chest-No S4, +S1, +S2, No S3, No Murmurs, No Rubs, No Gallops, No Ectopy Abdomen-Soft, Bowel Sounds Present, Tender, Firm and Distended, No Hepatomegaly, No Splenomegaly, No Palpable Masses, No Rebound, No Rigidity, No Guarding Musculoskeletal-Full Range of Motion Bilaterally, No CVAT Extremities-No Cyanosis, No Clubbing, No Edema Nuero-Cranial Nerves II-XII grossly intact, Motor WNL, DTRs WNL, Strength WNL, Non Focal Psych-Normal Mood (7) Osteomyelitis: Plan: Outpatient note reports h/o L4-L5 discitis, cultures +C. Albicans, also with MV endocarditis. Completed therapy with fluconazole and levofloxacin 10/02/20 Pt reports back pain x 1 month. Reports tactile fevers x 3 days. ABD/PELVIS CT: Destructive change at the L4-5 endplates with paravertebral infiltration consistent with a discitis/osteomyelitis. The endplates demonstrate sclerotic edges, therefore, this may represent an acute on chronic discitis/ost eomyelitis. Obtain MRI L-spine to r/o discitis/osteomyelitis Obtain blood cultures, lactate Zosyn, daptomycin ESR, CRP elevated ID consult Repeat CRP, ESR, CBC in am Consider ortho spine consult. Currently unavailable (8) Endocarditis: Plan: History IV drug abuse. Last reported use in 2020. Outpatient note reports h/o L4-L5 discitis, cultures +C. Albicans, also with MV endocarditis. Completed therapy with fluconazole and levofloxacin 10/02/20 Since pt reports exertional SOB x several weeks and tactile fevers x 3 days, Will obtain echo to r/o endocarditis Obtain blood cultures Started on Zosyn, daptomycin ID consult (9) Asthma: Plan: No signs of exacerbation Continue Xopenex as needed (10) HTN (hypertension): Plan: Continue propranolol DVT Prophylaxis SCDs Currently incarcerated at [facility] Pt was seen and care coordinated with Dr Roberts. See addendum Admission and Anticipated Discharge Date Admission Date: May 14, 2021 Results & Data Results & Data ([facility]) Vital Signs (Past 12 Hours) Vital Signs Pulse Resp BP Pulse Ox Pulse Ox 05/16/21 14:00 60 18 168/93 H 95 05/16/21 09:11 61 18 142/93 H 97 05/16/21 05:07 95 05/16/21 05:00 63 14 168/96 H 96 05/16/21 04:28 69 16 144/95 H 97 (1) Hepatitis C Hepatic coma status: without hepatic coma Viral hepatitis chronicity: unspecified Qualified Code(s): B19.20 - Unspecified viral hepatitis C without hepatic coma
[2021-05-16] MEDS: lisinopril 10 MG TAB PO SCH (17:25)
[2021-05-16] MEDS: PANTOprazole 40 MG TAB PO SCH (21:04)
[2021-05-16] MEDS: traZODone HCL 100 MG TAB PO SCH (21:05)
[2021-05-17 05:11] LABS: Hepatitis A Antibody IgM NON-REACTIVE (NON-REACTIVE); Hepatitis B Core Antibody IgM NON-REACTIVE (NON-REACTIVE); Hepatitis C Vira RNA (Log) PCR 5.99 Log IU/mL (NOT DETECTED); Hepatitis C Viral RNA by PCR 978000 IU/mL (NOT DETECTED)
[2021-05-17 05:21] LABS: Albumin Globulin Ratio 0.7 (0.9-2); Albumin Level 3.1 gm/dl (3.4-5.0); BUN Creatinine Ratio 15.7 (10-20); Bilirubin,Total 0.8 mg/dl (0.2-1.0); Calcium 8.5 mg/dl (8.5-10.1); Creatinine Clr Calc Pharmacy 99.6 ml/min; Est GFR (African American) 86.3 ml/min; Est GFR (Non-African American) 74.4 ml/min; Globulin 4.5 gm/dl (2.5-4.0); Magnesium 1.9 mg/dl (1.7-2.4); Potassium 4.1 mmol/L (3.5-5.1); Total Protein 7.6 gm/dl (6.0-8.3)
[2021-05-17 05:26] LABS: Hematocrit (blood only) 45.4 % (42-52); Mean Corpuscular Hgb Conc 35.2 g/dL (32-36); Mean Corpuscular Volume 96.4 fL (80-100); RDW Coefficient of Variation 13.5 % (11.5-14.5); RDW Standard Deviation 47.6 fL (36.4-46.3); Red Blood Count 4.71 M/uL (4.7-6.1); White Blood Count 4.55 K/uL (4.8-10.8)
[2021-05-17 05:55] LABS: Mean Platelet Volume 11.1 fL (7.4-10.4); Platelet Count 92 K/uL (130-400)
--- NOTE | 2021-05-17 06:57 | Communication Note ---
Date of Service: May 17, 2021 4:08 AM Heart rate dropped down to 34 as per RN. Patient sleeping as per RN. AP Asymptomatic bradycardia Decrease maintenance beta-yanet dose from 40 mg BID to 20 mg BID Will relay to AM provider.
[2021-05-17] MEDS ORDERED: MAGNESIUM SULFATE / D5W 1 GM/100 ML BAG IV ONE (07:30)
--- NOTE | 2021-05-17 08:45 | Hospitalist Progress Note ---
Date of Service May 17, 2021 Assessment & Plan (1) Abdominal pain: (2) Cirrhosis: (3) Esophageal varices: (4) Thrombocytopenia: (5) Hepatitis C: Plan: Patient is 41 y/o M with PMH HIV, Hepatitis C, h/o syphilis, cirrhosis, ascites, esophageal varices, h/o IV drug abuse, alcohol abuse, h/o endocarditis, h/o osteomyelitis lumbar spine in 2020 presents to ER from [facility] with c/o right sided abdominal pain x 3 days with radiation to back. C/O one loose stool daily. Outpatient record sent with pt from [facility]: 02/21/2021: Plt: 61K, T bili: 0.7, AST: 65, ALT: 38. Alk Phos: 118 Today afebrile, no leukocytosis, Plt: 84, INR: 1.2, T Bili: 1.5, AST: 64, ALT: 46, Alk Phos: 148 CT Abd/pelvis: 1. Cirrhotic liver with mild perihepatic inflammatory change. This may represent acute hepatitis. 2. Distal paraesophageal, upper abdominal, and umbilical varices with associated splenomegaly. This consistent with underlying portal hypertension. 3. No bowel wall thickening or obstruction. 4. Normal appendix. 5. Left-sided nephrolithiasis. No hydronephrosis. In ER given 1L NSS, Zofran, morphine 4mg No acute signs of GI bleed, no significant ascites noted on CT abd/pelvis Acute hepatitis panel pending HCV RNA +, Viral Load High GI on case, Will Text Await Ortho Spine Continue PPI (6) HIV (human immunodeficiency virus infection): Plan: Outpatient record reports CD4:120 on 02/21/2111/2020: HIV VL<20, HCV VL: [id number] CD4, HIV RNA pending ID rec to DC Abx for now Old Records obtained from [place], will review ROS-No Headache, No Visual Changes, No Nausea, No Vomiting, No Fever, No Chills, No Neck Pain or Stiffness, No Chest Pain, No Palpitations, No SOB, No WILLETT, No Cough, No Sputum, No Wheezing, No Abd Pain, No Diarrhea, No Hematemesis, No Hemoptysis, No Unexpected Weight Loss, No Flank pain, No Melena, No Hematochezia, No Frequency, No Urgency, No Burning, No Hematuria, No Rashes, No Diaphoresis. Appetite is Normal, +Back Pain Physical Exam Gen-AAO x 3, NAD, Afebrile, Khmer speaking only Head-NCAT, EOMI, PERRLA, Anicteric Sclera, No Posterior Pharyngeal Erythema Neck-Supple, No JVD, No Thyromegaly, No Masses, No LAD, No Bruits Lungs-Clear to Auscultation Bilaterally, No Rales, No Rhonchi, No Wheezing, No Crepitus Chest-No S4, +S1, +S2, No S3, No Murmurs, No Rubs, No Gallops, No Ectopy Abdomen-Soft, Bowel Sounds Present, Tender, Firm and Distended, No Hepatomegaly, No Splenomegaly, No Palpable Masses, No Rebound, No Rigidity, No Guarding Musculoskeletal-Full Range of Motion Bilaterally, No CVAT Extremities-No Cyanosis, No Clubbing, No Edema Nuero-Cranial Nerves II-XII grossly intact, Motor WNL, DTRs WNL, Strength WNL, Non Focal Psych-Normal Mood (7) Osteomyelitis: Plan: Outpatient note reports h/o L4-L5 discitis, cultures +C. Albicans, also with MV endocarditis. Completed therapy with fluconazole and levofloxacin 10/02/20 Pt reports back pain x 1 month. Reports tactile fevers x 3 days[address] ABD/PELVIS CT: Destructive change at the L4-5 endplates with paravertebral infiltration consistent with a discitis/osteomyelitis. The endplates demonstrate sclerotic edges, therefore, this may represent an acute on chronic discitis/osteomyelitis. Obtain MRI L-spine to r/o discitis/osteomyelitis Obtain blood cultures, lactate Zosyn, daptomycin ESR, CRP elevated ID consult Repeat CRP, ESR, CBC in am Consider ortho spine consult. Currently unavailable (8) Endocarditis: Plan: History IV drug abuse. Last reported use in 2020. Outpatient note reports h/o L4-L5 discitis, cultures +C. Albicans, also with MV endocarditis. Completed therapy with fluconazole and levofloxacin 10/02/20 Since pt reports exertional SOB x several weeks and tactile fevers x 3 days, Will obtain echo to r/o endocarditis Obtain blood cultures Started on Zosyn, daptomycin ID consult (9) Asthma: Plan: No signs of exacerbation Continue Xopenex as needed (10) HTN (hypertension): Plan: Continue propranolol DVT Prophylaxis SCDs Currently [facility] was [facility] and care coordinated with Dr Roberts. See addendum Admission and Anticipated Discharge Date Admission Date: May 14, 2021 Subjective Pin is gone, Feels better Results & Data Results & Data ([facility]) Vital Signs (Past 12 Hours) Vital Signs Temp Pulse Pulse Pulse Resp BP Pulse Ox 05/17/21 07:31 36.6 C 53 L 16 130/83 97 05/17/21 02:50 36.5 C 52 L 16 119/79 95 05/17/21 00:50 65 05/16/21 22:48 36.7 C 46 L 16 145/88 H 94 (1) Hepatitis C Hepatic coma status: without hepatic coma Viral hepatitis chronicity: unspecified Qualified Code(s): B19.20 - Unspecified viral hepatitis C without hepatic coma
[2021-05-17] MEDS: BIKTARVY PO SCH (09:06)
[2021-05-17] MEDS: lisinopril 10 MG TAB PO SCH (09:06)
[2021-05-17] MEDS: DULoxetine HCL 30 MG CAP PO SCH ×2 (09:06→20:49)
--- NOTE | 2021-05-17 13:01 | Hospitalist Progress Note ---
Date of Service May 17, 2021 Assessment & Plan (1) HIV (human immunodeficiency virus infection): Plan: Outpatient record reports CD4:120 on 02/21/2111/2020: HIV VL<20, HCV VL: [id number] CD4, HIV RNA pending ID rec to [facility]x for now Old Records obtained from [place], reviewed (2) Osteomyelitis: Plan: Outpatient note reports h/o L4-L5 discitis, cultures +C. Albicans, also with MV endocarditis. Completed therapy with fluconazole and levofloxacin 10/02/20 Pt reports back pain x 1 month. Reports tactile fevers x [address] days[address] ABD/PELVIS CT: Destructive change at the L4-5 endplates with paravertebral infiltration consistent with a discitis/osteomyelitis. The endplates demonstrate sclerotic edges, therefore, this may represent an acute on chronic discitis/osteomyelitis. Obtain MRI L-spine to r/o discitis/osteomyelitis Obtain blood cultures, lactate Zosyn, daptomycin ESR, CRP elevated ID consult Repeat CRP, ESR, CBC in am Consider ortho spine consult. Currently unavailable (3) Endocarditis: Plan: History IV drug abuse. Last reported use in 2020. Outpatient note reports h/o L4-L5 discitis, cultures +C. Albicans, also with MV endocarditis. Completed therapy with fluconazole and levofloxacin 10/02/20 Since pt reports exertional SOB x several weeks and tactile fevers x 3 days, Will obtain echo to r/o endocarditis Obtain blood cultures Started on Zosyn, daptomycin ID consult (4) Asthma: Plan: No signs of exacerbation Continue Xopenex as needed (5) HTN (hypertension): Plan: Continue propranolol DVT Prophylaxis SCDs Currently incarcerated at [facility] Pt was seen and care coordinated with Dr Roberts. See addendum (6) Adjustment disorder with anxiety: (7) Cirrhosis of liver with ascites: (8) Constipation: (9) Back pain: Plan: Hx lumbar OM (10) Abdominal pain: Plan: Resolved, likely from Hep C (11) Hepatitis C: Plan: Active, outpatient treatment (12) History of syphilis: (13) Polysubstance abuse: Plan: Cocaine, Opiates, Alcohol Plan: ROS-No Headache, No Visual Changes, No Nausea, No Vomiting, No Fever, No Chills, No Neck Pain or Stiffness, No Chest Pain, No Palpitations, No SOB, No WILLETT, No Cough, No Sputum, No Wheezing, No Abd Pain, No Diarrhea, No Hematemesis, No Hemoptysis, No Unexpected Weight Loss, No Flank pain, No Melena, No Hematochezia, No Frequency, No Urgency, No Burning, No Hematuria, No Rashes, No Diaphoresis. Appetite is Normal, +Back Pain Physical Exam Gen-AAO x 3, NAD, Afebrile, Italian speaking only Head-NCAT, EOMI, PERRLA, Anicteric Sclera, No Posterior Pharyngeal Erythema Neck-Supple, No JVD, No Thyromegaly, No Masses, No LAD, No Bruits Lungs-Clear to Auscultation Bilaterally, No Rales, No Rhonchi, No Wheezing, No Crepitus Chest-No S4, +S1, +S2, No S3, No Murmurs, No Rubs, No Gallops, No Ectopy Abdomen-Soft, Bowel Sounds Present, Tender, Firm and Distended, No Hepatomegaly, No Splenomegaly, No Palpable Masses, No Rebound, No Rigidity, No Guarding Musculoskeletal-Full Range of Motion Bilaterally, No CVAT Extremities-No Cyanosis, No Clubbing, No Edema Nuero-Cranial Nerves II-XII grossly intact, Motor WNL, DTRs WNL, Strength WNL, Non Focal Psych-Normal Mood Admission and Anticipated Discharge Date Admission Date: May 14, 2021 Subjective Pin is gone, Feels better Results & Data Results & Data ([facility]) Vital Signs (Past 12 Hours) Vital Signs Temp Pulse Pulse Pulse Resp BP Pulse Ox 05/17/21 12:00 36.8 C 67 18 147/89 H 93 05/17/21 09:00 60 05/17/21 07:31 36.6 C 53 L 16 130/83 97 05/17/21 02:50 36.5 C 52 L 16 119/79 95 (1) Back pain Back pain laterality: unspecified Back pain location: low back pain Chronicity: unspecified Sciatica presence: without sciatica Qualified Code(s): M54.50 - Low back pain, unspecified (2) Hepatitis C Hepatic coma status: without hepatic coma Viral hepatitis chronicity: unspecified Qualified Code(s): B19.20 - Unspecified viral hepatitis C without hepatic coma
[2021-05-17 14:31] LABS: Codeine Urine NEGATIVE ng/mL (<50); Hydrocodone Urine NEGATIVE ng/mL (<50); Hydromor Urine NEGATIVE ng/mL (<50); Morphine Urine 409 ng/mL (<50); Norhydrocodone Conf Ur NEGATIVE ng/mL (<50); Noroxycodone Urine NEGATIVE ng/mL (<50); Oxycodone Urine NEGATIVE ng/mL (<50); Oxymorph Urine NEGATIVE ng/mL (<50)
[2021-05-17] MEDS: traZODone HCL 100 MG TAB PO SCH (20:47)
[2021-05-17] MEDS: PANTOprazole 40 MG TAB PO SCH (20:49)
[2021-05-17] MEDS: PROPRANOLOL HCL 20 MG TAB PO SCH (20:49)
[2021-05-18] MEDS: PROPRANOLOL HCL 20 MG TAB PO SCH ×2 (08:24→20:34)
[2021-05-18] MEDS: DULoxetine HCL 30 MG CAP PO SCH ×2 (08:24→20:35)
[2021-05-18] MEDS: BIKTARVY PO SCH (08:24)
[2021-05-18] MEDS: lisinopril 10 MG TAB PO SCH (08:24)
[2021-05-18 09:00] LABS: Hematocrit (blood only) 48.9 % (42-52); Hemoglobin 17.1 g/dL (14.0-18.0); Mean Corpuscular Hemoglobin 33.7 pg (25-34); Mean Corpuscular Volume 96.4 fL (80-100); RDW Coefficient of Variation 13.7 % (11.5-14.5); Red Blood Count 5.07 M/uL (4.7-6.1); White Blood Count 4.18 K/uL (4.8-10.8)
[2021-05-18 09:01] LABS: Mean Platelet Volume 11.6 fL (7.4-10.4); Platelet Count 99 K/uL (130-400)
[2021-05-18 09:13] LABS: INR 1.2 (0.9-1.1)
[2021-05-18 09:19] LABS: Albumin Globulin Ratio 0.7 (0.9-2); Albumin Level 3.3 gm/dl (3.4-5.0); BUN Creatinine Ratio 12.7 (10-20); Bilirubin,Total 0.9 mg/dl (0.2-1.0); Calcium 8.8 mg/dl (8.5-10.1); Creatinine Clr Calc Pharmacy 88.6 ml/min; Est GFR (African American) 88.9 ml/min; Est GFR (Non-African American) 76.7 ml/min; Globulin 4.7 gm/dl (2.5-4.0); Potassium 4.4 mmol/L (3.5-5.1)
--- NOTE | 2021-05-18 09:57 | Consultation ---
Date of Consultation May 18, 2021 Assessment & Plan (1) Osteomyelitis: Dr. Louis has reviewed case as well as lumbar MRI. There is no urgent surgical intervention warranted. He is neurologically intact and there is no evidence of epidural abscess. Treatment is conservative. Will most likely need a PICC line with minimum of 6 to 8-week IV antibiotics. May need consultation with infectious disease. Follow-up is with established care at [facility] for same issue in 2020. History of Present Illness Reason for Consultation: Discitis L4-5 Attending Physician: Samir Carranza, DO History of Present Illness This is a 41-year-old Telugu-speaking only prisoner we are asked in consultation regarding discitis/osteomyelitis of L4-5 with associated severe stenosis of L4-5. I used an bilingual interpreter via video chat for my consultation with Mr. Fu today. Information is still limited though. It appears he had a history of a discitis in the lumbar spine last year treated at [place] although the patient reports to me this was treated in [facility]. He has a history of IV drug user he reports last use was over a year ago. Also HIV positive and hep C positive. Also has mitral valve endocarditis. Currently being treated with Dapto and Zosyn. Blood cultures upon admission show no growth to date. Patient reports no back pain or leg pain since his admission. Prior to that it was ongoing for well over a year. He denies any fevers or chills to me Allergies Allergy/AdvReac Type Severity Reaction Status Date / Time No Known Allergies Allergy Unverified 05/14/21 19:10 Home Medications Medication Instructions Recorded Confirmed Type bictegravir 30 mg-emtricitabine 1 tab PO DAILY 05/14/21 05/14/21 History 120 mg-tenofovir alafenam 15 mg tablet (Biktarvy) duloxetine 30 mg capsule,delayed 30 mg PO BID 05/14/21 05/14/21 History release (Cymbalta) levalbuterol tartrate 45 2 inh INHALATION Q6H PRN 05/14/21 05/14/21 History mcg/actuation aerosol inhaler (Xopenex HFA) pantoprazole 40 mg tablet,delayed 40 mg PO HS 05/14/21 05/14/21 History release (Protonix) propranolol 40 mg tablet 40 mg PO BID 05/14/21 05/14/21 History trazodone 100 mg tablet 100 mg PO HS 05/14/21 05/14/21 History Patient History Medical History Asthma Cirrhosis Endocarditis Esophageal varices Hepatitis C HIV (human immunodeficiency virus infection) HTN (hypertension) Osteomyelitis Thrombocytopenia Surgical History History of esophagogastroduodenoscopy (EGD) Family History Other Diabetes Social History Smoking Status: Unknown if ever smoked Tobacco Type: Cigarettes Do You Dip or Chew Tobacco: No; Hx Alcohol Use: No Hx Substance Use: Yes Preferred Language: Telugu Communication Ability: Effective Communication Tools: Language Line Casework Supervisor, Physical Gestures and Lip Movement/Reading Casework Supervisor Required: Yes Beliefs That Will Affect Care: None marital status: Single Current Living Situation: Other Current Living Situation Comment: [facility] Other Information That Helps Us Care for You: No Feels Safe at Home: Yes Safety Concerns: Feels Safe At This Time Assistive Devices: Glasses Review of Systems Review of Systems: All systems reviewed & are unremarkable except as noted in HPI & below Physical Exam Physical Exam: He is seen in bed 259 with 2 guards present. He is cooperative with exam He is in no acute distress He is able to roll over with ease for me. Nontender to palpation and percussion ~thoracolumbar spine Strength is 5/5 bilateral lower extremities Negative logrolling bilaterally Results & Data ([facility]) Vital Signs (Past 12 Hours) Vital Signs Temp Pulse Pulse Resp BP Pulse Ox 05/18/21 08:20 54 L 05/18/21 07:38 36.6 C 51 L 18 136/84 95 05/18/21 02:53 36.6 C 50 L 18 130/84 94 05/18/21 01:53 61 05/17/21 22:45 36.6 C 48 L 18 130/87 94 Diagnostic Findings [facility], [place] [phone] Magnetic Resonance Report Patient:MARCY [id number] [id number] Admit Date:05/14/21 MR#:[id number] Address1:[address] Acct ID:[id number] Address2:[address] [place] Date:1980 [facility] Zip:[place] [address] Age:41 Location:[facility] Sex:M Room/Bed:[facility] 1-7 Att Phy:Samir Carranza DO Diagnosis:ABDOMINAL PAIN Umu Phy:KARIN Loza Service Date:05/15/21 Fam Phy: Interpreting Phy:Pablito Kelley MDAdmit Phy:Rhona Roberts DO Ordering Phy:Latoya Pozo PA-C cc: ~ MRI OF THE LUMBAR SPINE WITH AND WITHOUT CONTRAST CLINICAL HISTORY: Low back pain. Evaluate for discitis. COMPARISON STUDY: CT of the abdomen and pelvis May 14, 2021. TECHNIQUE: Utilizing a 1.5 Ivonne magnet and dedicated coil, multiplanar, multiecho imaging of the lumbar spine was performed before and after uneventful IV administration of 10 mL of Gadavist. FINDINGS: For purposes of numbering on this exam, the L5-S1 disc space is assigned to axial image 24 of 26. Note is made of marked disc space narrowing of the L4-L5 intervertebral disc. There is associated bony destruction of the inferior endplate of L4 and the superior endplate of L5. There is 20% loss of vertebral body height of L4 and 40% loss of vertebral height of L5. Note is made of mild paravertebral edema and enhancement. There is extensive epidural enhancement at the L4 and L5 levels, predominantly anteriorly. This suggests phlegmon. No rim- enhancing epidural fluid collection is identified to suggest an abscess. There is also posterior epidural phlegmon. This phlegmon as well as retropulsion of the inferior endplate of L4 result in severe central canal stenosis. Patent AP diameter of the canal at the L4-L5 level is 3 mm. Otherwise, the central canal is patent. Mild degenerative disc disease at L5-S1 is noted. No additional sites of central canal stenosis are present. Moderate bilateral neural foraminal stenosis at L4-L5. Otherwise, the neural foramen are patent. IMPRESSION: Marked disc space narrowing at L4-L5 with associated destructive changes of the inferior endplate of L4 and superior endplate of L5. The findings represent discitis/osteomyelitis. This process may be subacute given the signal characteristics. Extensive associated epidural enhancement at the L4-L5 level represents phlegmon. No rim-enhancing fluid collection to suggest abscess. Extensive inflammation and retropulsion of the inferior endplate of L4 result in severe central canal stenosis at this level. Spine surgical consultation is recommended. ACT 112: Negative or not required by law. Electronically signed by: Pablito Kelley M.D. 05/15/2021 9:38 AM Dictated:05/15/2120 Transcribed: 05/15/21 09
--- NOTE | 2021-05-18 10:51 | Hospitalist Progress Note ---
Date of Service May 18, 2021 Assessment & Plan (1) HIV (human immunodeficiency virus infection): Plan: Outpatient record reports CD4:120 on 02/21/2111/2020: HIV VL<20, HCV VL: 312704 CD4, HIV RNA pending ID rec to [facility] Abx for now Old Records obtained from [place], reviewed (2) Osteomyelitis: Plan: Outpatient note reports h/o L4-L5 discitis, cultures +C. Albicans, also with MV endocarditis. Completed therapy with fluconazole and levofloxacin 10/02/20 Pt reports back pain x 1 month. Reports tactile fevers x 3 days. ABD/PELVIS CT: Destructive change at the L4-5 endplates with paravertebral infiltration consistent with a discitis/osteomyelitis. The endplates demonstrate sclerotic edges, therefore, this may represent an acute on chronic discitis/osteomyelitis. Obtain MRI L-spine to r/o discitis/osteomyelitis Obtain blood cultures, lactate Zosyn, daptomycin ESR, CRP elevated ID consult Repeat CRP, ESR, CBC in am ortho spine consult. Will see today, however, no surgery at this time, refer to tertiary care center sec tp complexity and comorbidities (3) Endocarditis: Plan: History IV drug abuse. Last reported use in 2020. Outpatient note reports h/o L4-L5 discitis, cultures +C. Albicans, also with MV endocarditis. Completed therapy with fluconazole and levofloxacin 10/02/20 Since pt reports exertional SOB x several weeks and tactile fevers x 3 days, Will obtain echo to r/o endocarditis Obtain blood cultures Started on Zosyn, daptomycin, stopped per ID ID on case (4) Asthma: Plan: No signs of exacerbation Continue Xopenex as needed (5) HTN (hypertension): Plan: Continue propranolol DVT Prophylaxis SCDs Currently incarcerated at [facility] (6) Adjustment disorder with anxiety: (7) Cirrhosis of liver with ascites: (8) Constipation: (9) Back pain: Plan: Hx lumbar OM (10) Abdominal pain: Plan: Resolved, likely from Hep C (11) Hepatitis C: Plan: Active, outpatient treatment (12) History of syphilis: (13) Polysubstance abuse: Plan: Cocaine, Opiates, Alcohol Plan: DC back to correctional facility tomorrow ROS-No Headache, No Visual Changes, No Nausea, No Vomiting, No Fever, No Chills, No Neck Pain or Stiffness, No Chest Pain, No Palpitations, No SOB, No WILLETT, No Cough, No Sputum, No Wheezing, No Abd Pain, No Diarrhea, No Hematemesis, No Hemoptysis, No Unexpected Weight Loss, No Flank pain, No Melena, No Hematochezia, No Frequency, No Urgency, No Burning, No Hematuria, No Rashes, No Diaphoresis. Appetite is Normal, +Back Pain Physical Exam Gen-AAO x 3, NAD, Afebrile, Citizen Of [place] speaking only Head-NCAT, EOMI, PERRLA, Anicteric Sclera, No Posterior Pharyngeal Erythema Neck-Supple, No JVD, No Thyromegaly, No Masses, No LAD, No Bruits Lungs-Clear to Auscultation Bilaterally, No Rales, No Rhonchi, No Wheezing, No Crepitus Chest-No S4, +S1, +S2, No S3, No Murmurs, No Rubs, No Gallops, No Ectopy Abdomen-Soft, Bowel Sounds Present, Non Tender, Non Distended, No Hepatomegaly, No Splenomegaly, No Palpable Masses, No Rebound, No Rigidity, No Guarding Musculoskeletal-Full Range of Motion Bilaterally, No CVAT Extremities-No Cyanosis, No Clubbing, No Edema Nuero-Cranial Nerves II-XII grossly intact, Motor WNL, DTRs WNL, Strength WNL, Non Focal Psych-Normal Mood Admission and Anticipated Discharge Date Admission Date: May 14, 2021 Subjective Pain is gone, Feels better Results & Data Results & Data ([facility]) Vital Signs (Past 12 Hours) Vital Signs Temp Pulse Pulse Resp BP Pulse Ox 05/18/21 08:20 54 L 05/18/21 07:38 36.6 C 51 L 18 136/84 95 05/18/21 02:53 36.6 C 50 L 18 130/84 94 05/18/21 01:53 61 (1) Back pain Back pain laterality: unspecified Back pain location: low back pain Chronicity: unspecified Sciatica presence: without sciatica Qualified Code(s): M54.50 - Low back pain, unspecified (2) Hepatitis C Hepatic coma status: without hepatic coma Viral hepatitis chronicity: unspecified Qualified Code(s): B19.20 - Unspecified viral hepatitis C without hepatic coma
--- NOTE | 2021-05-18 18:19 | Electrocardiogram Report ---
Test Reason : Blood Pressure : / mmHG Vent. Rate : 061 BPM Atrial Rate : 061 BPM P-R Int : 162 ms QRS Dur : 088 ms QT Int : 444 ms P-R-T Axes : 032 068 037 degrees QTc Int : 446 ms Normal sinus rhythm Normal ECG No previous ECGs available Confirmed by Kushal Dickinson ([id number]) on 05/18/2021 6:19:41 PM Referred By: Dago FRAZIER Confirmed By:Kushal Dickinson
[2021-05-18] MEDS: traZODone HCL 100 MG TAB PO SCH (20:33)
[2021-05-18] MEDS: PANTOprazole 40 MG TAB PO SCH (20:35)
[2021-05-19] MEDS: PROPRANOLOL HCL 20 MG TAB PO SCH (07:48)
[2021-05-19] MEDS: DULoxetine HCL 30 MG CAP PO SCH (07:49)
[2021-05-19] MEDS: BIKTARVY PO SCH (07:49)
[2021-05-19] MEDS: lisinopril 10 MG TAB PO SCH (07:49)
--- NOTE | 2021-05-19 12:07 | Discharge Summary ---
Date of Service May 19, 2021 Admission HPI Per Admitting Provider Patient is 41 y/o M with PMH HTN, HIV, Hepatitis C, h/o syphilis, cirrhosis, ascites, esophageal varices, h/o IV drug abuse, alcohol abuse, h/o endocarditis, h/o osteomyelitis lumbar spine in 2020 presents to ER from [facility] with c/o right sided abdominal pain x 3 days. 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 Reports moderate pain, pain increased with inspiration, and radiates to right back. Reports history swelling of abdomen and states abdomen continues to be swollen. Feels chills and tactile fevers at night for past 3 days. Past 2 weeks loose stools having one episode daily. Denies nausea, vomiting. Reports back pain since last year. Reports history osteomyelitis and endocarditis in 2020 and was treated with antibiotics and back pain seemed to improve after treatment. He reports was using a back brace which he felt helped however since being incarcerated the past month has been unable to use back brace. Reports Back pain stated occurring again the past month and is to low ellen k. C/O SOB with exertion for past several weeks. Denies cough or chest pain. Had rash to abdomen that was pruritic. reports was given a cream that improved rash. reports h/o EGD and thinks had GI bleeding of stomach in past. Denies h/o paracentesis. Patient thinks was treated for Hepatitis C. Reports thinks had Hepatitis A and B vaccination. Reports last used IV heroin 04/2020. Last ETOH 2020. Denies N/V, melena, hematochezia, dizziness, orthopnea, paresthesias, extremity weakness, extremity edema. Outpatient record sent with pt from [facility]: 02/21/2021: Plt: 61K, T bili: 0.7, AST: 65, ALT: 38. Alk Phos: 118, CD4:120 11/2020: HIV VL<20, HCV VL: [id number] 12/17/20 US: inhomogenous echotexture with lobulated contour concerning for cirrhosis, dilated CBD, splenomegaly, no ascites. Admission Exam Per Admitting Provider General: no distress, WDWN Head: normocephalic, atraumatic Eyes: conjunctiva non-injected, anicteric ENT: normal inspection external ears, nose, mucous membranes moist Neck: supple, trachea midline Lungs: clear, no respiratory distress, no wheezing/rhonchi/rales CV: RRR, no murmur, no pretibial edema Abd: +distended, normal BS, +tender to palpation RUQ, epigastric Ext: no cyanosis, no calf tenderness Neuro: A&O x 3, no focal deficits noted, normal affect Skin: warm, dry Principal Diagnosis HIV (human immunodeficiency virus infection): Osteomyelitis: L Spine, Chronic Endocarditis: Asthma: HTN (hypertension): Adjustment disorder with anxiety: Cirrhosis of liver with ascites: Constipation: Back pain: Abdominal pain: Hepatitis C: History of syphilis: Polysubstance abuse: Discharge Exam See Below Discharge Data Allergies Allergy/AdvReac Type Severity Reaction Status Date / Time No Known Allergies Allergy Unverified 05/14/21 19:10 Consultations 05/15/21 08:00 Consult Gastroenterology Routine Consult Infectious Diseases Routine 05/15/21 11:43 Consult Orthopedic Surgery Routine 05/17/21 05:55 Consult Orthopedic Surgery Routine Ordered Studies 05/14/21 17:37 CT abd pelvis IV con only Stat 05/15/21 10:10 liver Routine 05/15/21 22:18 MR lumbar spine wo/w con Routine Current Diagnoses Unspecified viral hepatitis C without hepatic coma (05/14/21) Human immunodeficiency virus [HIV] disease (05/14/21) Thrombocytopenia, unspecified (05/14/21) Other psychoactive substance abuse, uncomplicated (05/14/21) Adjustment disorder with anxiety (05/14/21) Essential (primary) hypertension (05/14/21) Endocarditis, valve unspecified (05/14/21) Esophageal varices without bleeding (05/14/21) Unspecified asthma, uncomplicated (05/14/21) Constipation, unspecified (05/14/21) Unspecified cirrhosis of liver (05/14/21) Low back pain, unspecified (05/14/21) Osteomyelitis, unspecified (05/14/21) Right upper quadrant pain (05/14/21) Unspecified abdominal pain (05/14/21) Other ascites (05/14/21) Personal history of other infectious and parasitic diseases (05/14/21) Allergies No Known Allergies Allergy (Unverified 05/14/21 19:10) Height/Weight/Isolation Height 5 ft 11 in Weight 84.4 kg Chemistry 05/18/21 08:12 Sodium 132 L Potassium 4.4 Chloride 104 Carbon Dioxide 25 Anion Gap 3 BUN 15 Creatinine 1.18 Glucose 119 H Hospital Course (1) HIV (human immunodeficiency virus infection): Outpatient record reports CD4:120 on 02/21/2111/2020: HIV VL<20, HCV VL: [id number] CD4, HIV RNA pending ID rec to [facility] Ab[facility] for now Old Records obtained from [place], reviewed (2) Osteomyelitis: Outpatient note reports h/o L4-L5 discitis, cultures +C. Albicans, also with MV endocarditis. Completed therapy with fluconazole and levofloxacin 10/02/20 Pt reports back pain x 1 month. Reports tactile fevers x 3 days. ABD/PELVIS CT: Destructive change at the L4-5 endplates with paravertebral infiltration consistent with a discitis/osteomyelitis. The endplates demonstrate sclerotic edges, therefore, this may represent an acute on chronic discitis/osteomyelitis. MRI L-spine to r/o discitis/osteomyelitis Zosyn, daptomycin DCd by ID ESR, CRP elevated ID consult Repeat CRP, ESR, CBC in am ortho spine consult. No surgery at this time, refer to tertiary care center sec to complexity and comorbidities (3) Endocarditis: History IV drug abuse. Last reported use in 2020. Outpatient note reports h/o L4-L5 discitis, cultures +C. Albicans, also with MV endocarditis. Completed therapy with fluconazole and levofloxacin 10/02/20 Since pt reports exertional SOB x several weeks and tactile fevers x 3 days, Echo neg for endocarditis blood cultures were negative Started on Zosyn, daptomycin, stopped per ID (4) Asthma: No signs of exacerbation Continue Xopenex as needed (5) HTN (hypertension): Continue propranolol DVT Prophylaxis SCDs Currently incarcerated at [facility] (6) Adjustment disorder with anxiety: (7) Cirrhosis of liver with ascites: (8) Constipation: (9) Back pain: Hx lumbar OM (10) Abdominal pain: Resolved, likely from Hep C (11) Hepatitis C: Active, outpatient treatment (12) History of syphilis: (13) Polysubstance abuse: Cocaine, Opiates, Alcohol DC back to correctional facility today and f/u outpatient at [place] or [facility] for back Issues-[facility] ROS-No Headache, No Visual Changes, No Nausea, No Vomiting, No Fever, No Chills, No Neck Pain or Stiffness, No Chest Pain, No Palpitations, No SOB, No WILLETT, No Cough, No Sputum, No Wheezing, No Abd Pain, No Diarrhea, No Hematemesis, No Hemoptysis, No Unexpected Weight Loss, No Flank pain, No Melena, No Hematochezia, No Frequency, No Urgency, No Burning, No Hematuria, No Rashes, No Diaphoresis. Appetite is Normal, +Back Pain Physical Exam Gen-AAO x 3, NAD, Afebrile, Micronesian speaking only Head-NCAT, EOMI, PERRLA, Anicteric Sclera, No Posterior Pharyngeal Erythema Neck-Supple, No JVD, No Thyromegaly, No Masses, No LAD, No Bruits Lungs-Clear to Auscultation Bilaterally, No Rales, No Rhonchi, No Wheezing, No Crepitus Chest-No S4, +S1, +S2, No S3, No Murmurs, No Rubs, No Gallops, No Ectopy Abdomen-Soft, Bowel Sounds Present, Non Tender, Non Distended, No Hepatomegaly, No Splenomegaly, No Palpable Masses, No Rebound, No Rigidity, No Guarding Musculoskeletal-Full Range of Motion Bilaterally, No CVAT Extremities-No Cyanosis, No Clubbing, No Edema Nuero-Cranial Nerves II-XII grossly intact, Motor WNL, DTRs WNL, Strength WNL, Non Focal Psych-Normal Mood Total Time Total Time Spent Total Time Spent (In Minutes): 45 mins Discharge Plan Discharge Items Patient Disposition: Correctional Facility Reason For Visit: ABDOMINAL PAIN Discharge Diagnosis: HIV (human immunodeficiency virus infection): Osteomyelitis: L Spine, Chronic Endocarditis: Asthma: HTN (hypertension): Adjustment disorder with anxiety: Cirrhosis of liver with ascites: Constipation: Back pain: Abdominal pain: Hepatitis C: History of syphilis: Polysubstance abuse: Condition on Discharge: Good Health Concerns: [facility] issues need addressing [facility], Alexy has seen him in the past Activity: Resume your previous activity Lifting: Gradually increase as tolerated Bathing: No limitations Sexual Activity: When tolerated Exercise/Sports: Gradually increase as tolerated Driving/Machine Use: No limitations Weightbearing: Full weightbearing Non-emergency contact: Primary Care Provider and Specialist Call non-emergency contact if: you have any medication questions Follow-up/Referrals: Dago FRAZIER [Primary Care Provider] - Diet: Regular Addtl Attending Provider Instructions: none Pending Studies at Discharge: No Stand-Alone Forms: My [facility] [employer] Skilled Items Patient informed of condition?: Yes Discharge Level of Care: Other Communicable Disease: No Discharge Prognosis: Improving Lines: None Urinary Catheter: No Medications and DC Order Prescriptions: Continued propranolol 40 mg Tablet 40 mg PO BID RF: 0 trazodone 100 mg Tablet 100 mg PO HS RF: 0 pantoprazole [Protonix] 40 mg Tablet,Delayed Release (Dr/Ec) 40 mg PO HS RF: 0 duloxetine [Cymbalta] 30 mg Capsule,Delayed Release(Dr/Ec) 30 mg PO BID RF: 0 levalbuterol tartrate [Xopenex HFA] 45 mcg/actuation Hfa Aerosol Inhaler 2 inh INHALATION Q6H PRN (Reason: Shortness Of Breath Or Wheezing) RF: 0 Biktarvy 30-120-15 mg Tablet 1 tab PO DAILY RF: 0 Discharge Orders: Discharge Order (Routine); Ordered 05/19/21 Ordered By: Samir Carranza Admission Data Admit Date/Time: 05/14/21 22:11 Attending Provider: Samir Carranza Admit Provider: Rhona Roberts Primary Care Provider: Dago FRAZIER Other Providers: Kyler Louis ; Arely Gusman ; Severiano Kang ; Radha Pablo ; Moisés Shrestha I. ; David Albert II ; Susan Roblero ; Thad Tijerina ; Mario Stephenson
[2021-05-19 20:07] LABS: HIV 1 RNA PCR Copies/ML <20 NOT DETECTED copies/mL (NOT DETECTED); HIV-1 RNA Log Copies/mL <1.30 NOT DETECTED (NOT DETECTED); LSP % Cells Analyzed CD4 18 % (30-61); LSP Absolute Ct CD4 228 cells/uL (490-1740); LSP Lymphocytes Absolute 1285 cells/uL (850-3900)
== END 2021-05-19 14:50 | DRG 977 ==
LOC: ED 15:44 → EDINP 22:11 → SUATTDRO 22:11 → 2W 23:26